=== PATIENT | male | born 1965 | race Caucasian/White ===

== ENCOUNTER → 2016-05-31 | Outpatient (CLI) | payer MEDICAID ==
[2016-05-31 07:28] LABS: Basophils # (A) 0.1 k/uL (0-0.2); Basophils % (A) 1 %; CH 30.7; CHCM 33.6; Eosinophils # (A) 0.2 k/uL (0-0.7); Eosinophils % (A) 2 %; HCT 51.9 % (39.0-53.0); HDW 2.38; HGB 16.6 gm/dL (13.0-17.5); Luc # (Auto) 0.28; Luc % (Auto) 3; Lymphocytes # (A) 2.4 k/uL (1.0-4.8); Lymphocytes % (A) 25 %; MCH 29.5 pg (25.0-35.0); MCHC 32.1 g/dL (31.0-37.0); MCV 91.9 fL (80.0-100.0); Mean Platelet Volume 9.2; Monocytes # (A) 0.6 k/uL (0-1.0); Monocytes % (A) 7 %; Neutrophils # (A) 5.9 k/uL (1.3-7.7); Neutrophils % (A) 62 %; RBC 5.64 m/uL (4.30-5.90); RDW 12.2 % (11.5-15.5); WBC 9.5 k/uL (3.8-10.6); WBC (Perox) 9.18
[2016-05-31 10:31] LABS: ALT 60 U/L (21-72); AST 26 U/L (17-59); Alkaline Phosphatase 76 U/L (38-126); Anion Gap 10 mmol/L; Blood Urea Nitrogen 14 mg/dL (9-20); Calcium 9.7 mg/dL (8.4-10.2); Carbon Dioxide 27 mmol/L (22-30); Chloride 103 mmol/L (98-107); Cholesterol 205 mg/dL (<200); Glucose 149 mg/dL (74-99); HDL Cholesterol 41 mg/dL (40-60); Non-African American GFR(MDRD) >60 (>60 ml/min/1.73 sqM); Potassium 4.7 mmol/L (3.5-5.1); Sodium 140 mmol/L (137-145); Total Bilirubin 0.5 mg/dL (0.2-1.3); Total Protein 7.3 g/dL (6.3-8.2); Triglycerides 260 mg/dL (<150)
== END | disposition home or self-care (01) ==
LOC: LABWHC1 06:45
PROVIDERS: ATTEND Family Medicine
DX: Z00.00 Encounter for general adult medical examination without abnormal findings (principal); Z13.21 Encounter for screening for nutritional disorder; Z12.5 Encounter for screening for malignant neoplasm of prostate
CPT/HCPCS: 80061; 80053; 84443; 85025; 82306; 36415; G0103

== ENCOUNTER → 2016-06-24 | Outpatient (CLI) | payer MEDICAID ==
[2016-06-24 16:33] LABS: Hemoglobin A1C 6.9 % (4.2-6.1)
== END | disposition home or self-care (01) ==
LOC: LABWHC1 16:01
PROVIDERS: ATTEND Family Medicine
DX: E11.9 Type 2 diabetes mellitus without complications (principal)
CPT/HCPCS: 36415; 83036

== ENCOUNTER → 2016-09-21 | Outpatient (CLI) | payer MEDICAID ==
[2016-09-21 11:14] LABS: Hemoglobin A1C 8.5 % (4.2-6.1)
== END | disposition home or self-care (01) ==
LOC: LABWHC1 09:25
PROVIDERS: ATTEND Family Medicine
DX: E11.9 Type 2 diabetes mellitus without complications (principal)
CPT/HCPCS: 36415; 83036

== ENCOUNTER → 2016-12-07 | Outpatient (CLI) | payer MEDICAID ==
--- NOTE | 2016-12-07 23:12 | MR ---
EXAMINATION TYPE: MR knee LT wo con DATE OF EXAM: 12/07/2016 COMPARISON: NONE HISTORY: Left Knee pain with swelling and clicking since 1982 TECHNIQUE: Multiplanar, multisequence imaging of the left knee is performed without IV contrast. FINDINGS: The anterior and posterior cruciate ligaments are intact. There is mild knee joint effusion. There is mild spurring on the patella. There is horizontal and vertical signal in the posterior horn of the m edial meniscus that extends to the superior and inferior surface. There is spurring at the femoral an d tibial condyles. There is mild signal within the lateral meniscus. There is a 2 x 1 cm somewhat john ear area of fluid signal in the posterior aspect of the intercondylar proximal tibia. This is consist ent with multiple degenerative cysts. The collateral ligaments appear intact. There is a 5 mm cyst in the proximal fibula. IMPRESSION: No evidence of ligamentous tear. Hypertrophic osteoarthritis with small joint effusion. Complex horiz ontal and vertical tear of posterior horn medial meniscus. Degenerative changes within the other meni sci without a complete tear. Degenerative cysts in the proximal tibia and fibula.
== END | disposition home or self-care (01) ==
LOC: RADMRIMAIN 17:54
PROVIDERS: ATTEND Orthopaedic Surgery
DX: S83.242A Other tear of medial meniscus, current injury, left knee, initial encounter (principal); M17.12 Unilateral primary osteoarthritis, left knee; M85.68 Other cyst of bone, other site

== ENCOUNTER → 2016-12-28 | Outpatient (CLI) | payer MEDICAID ==
[2016-12-28 08:14] LABS: EKG EKG PERFORMED
[2016-12-28 08:51] LABS: Basophils # (A) 0.1 k/uL (0-0.2); Basophils % (A) 1 %; CHCM 34.8; Eosinophils # (A) 0.3 k/uL (0-0.7); Eosinophils % (A) 3 %; HCT 49.3 % (39.0-53.0); HDW 2.45; HGB 16.7 gm/dL (13.0-17.5); Luc # (Auto) 0.38; Luc % (Auto) 4; Lymphocytes # (A) 3.1 k/uL (1.0-4.8); Lymphocytes % (A) 32 %; MCH 31.3 pg (25.0-35.0); MCHC 33.9 g/dL (31.0-37.0); MCV 92.3 fL (80.0-100.0); Monocytes # (A) 0.6 k/uL (0-1.0); Monocytes % (A) 7 %; Neutrophils # (A) 5.2 k/uL (1.3-7.7); Neutrophils % (A) 54 %; RBC 5.35 m/uL (4.30-5.90); RDW 13.4 % (11.5-15.5); WBC 9.6 k/uL (3.8-10.6); WBC (Perox) 9.38
[2016-12-28 09:02] LABS: Anion Gap 9 mmol/L; Carbon Dioxide 28 mmol/L (22-30); Chloride 103 mmol/L (98-107); Potassium 4.8 mmol/L (3.5-5.1); Sodium 140 mmol/L (137-145)
== END | disposition home or self-care (01) ==
LOC: LABPAT 08:05
PROVIDERS: ATTEND Orthopaedic Surgery
DX: Z01.812 Encounter for preprocedural laboratory examination (principal); M23.92 Unspecified internal derangement of left knee
CPT/HCPCS: 80051; 85025; 93005

== ENCOUNTER 2017-01-06 08:22 | Day surgery (SDC) | payer MEDICAID ==
[2016-12-29 11:38] VITALS: BMI 41.5
--- NOTE | 2017-01-05 16:39 | HP ---
HISTORY AND PHYSICAL DATE OF SURGERY: 01/06/2017 Marshal Cordon is a 51-year-old patient seen with progressive left knee pain. After treatment options were discussed, he elected to proceed with left knee arthroscopy. Consent was obtained. PAST MEDICAL HISTORY: 1. Hyperlipidemia. 2. Hypertension. 3. Insulin-dependent diabetes. 4. Asthma. PAST SURGICAL HISTORY: Knee arthroscopy. DAILY MEDICATIONS: 1. Adderall. 2. Atorvastatin. 3. Lisinopril. 4. Metformin. 5. Vitamins. ALLERGIES: WELLBUTRIN. SOCIAL HISTORY: Patient denies current tobacco use. PHYSICAL EVALUATION OF THE LEFT KNEE: Range of motion is 0 to 125 degrees. There is tenderness along the medial joint line with a positive medial Jose's. Ligaments are stable. Hip rotation is without pain. Distal neurovascular exam is intact. RADIOGRAPHS: Radiographs of the left knee revealed moderate osteoarthritis. An MRI of the left knee revealed a medial meniscal tear. IMPRESSION: Internal derangement, left knee, with medial meniscal tear. PLAN: Left knee arthroscopy with partial meniscectomy and debridement. MMODL / IJN: [id number] /
[~2017-01-06 08:22] MED LIST: DEXAMETHASONE SOD PHOSPHATE 10 MG/ML 1 ML VIAL IV ONE; HYDROmorphone 1 MG/ML 1 ML SYRINGE IVP PRN; LACTATED RINGERS 1,000 ML IV SCH; LIDOCAINE 1% 20 ML VIAL (10MG/ML) FOR IV START INTRADERMA PRN; ONDANSETRON 4 MG/2 ML VIAL IVP ONE; SCOPOLAMINE 1.5MG/72HR PATCH TRANSDERM ONE; ceFAZolin 3 GM in SODIUM CHLORIDE 0.9% 100 ML IVPB ONE
[2017-01-06 09:08] LABS: Glucose,Whole Blood 129 mg/dL (75-99)
[2017-01-06] MEDS ORDERED: MIDAZOLAM 2 MG/2 ML VIAL ONE (09:26)
[2017-01-06] MEDS ORDERED: PROPOFOL 10 MG/ML 20 ML VIAL IV ONE (09:26)
[2017-01-06] MEDS ORDERED: LIDOCAINE 1% INJ 10MG/ML (20 ML MDV) ONE (09:26)
[2017-01-06] MEDS ORDERED: fentaNYL (PF) 50 MCG/ML 2 ML AMP ONE (09:26)
[2017-01-06] MEDS ORDERED: BUPIVACAINE (PF) 0.25% 30 ML VIAL SQ ONE (09:44)
[2017-01-06 10:24] VITALS: TEMP 97.2
--- NOTE | 2017-01-06 10:24 | P.OP ---
Date of Procedure: 01/06/17 Preoperative Diagnosis: Internal derangement left knee Postoperative Diagnosis: 1. Tear medial and lateral meniscus left knee 2. Grade 3 chondromalacia medial femoral condyle left knee 3. Grade 3/4 chondromalacia patellofemoral joint left knee 4. Reactive synovitis medial and suprapatellar compartments left knee Procedure(s) Performed: 1. Arthroscopic partial medial and lateral meniscectomy left knee 2. Arthroscopic chondroplasty medial femoral condyle left knee 3. Arthroscopic chondroplasty patella left knee 4. Arthroscopic partial synovectomy medial and suprapatellar compartments left knee Implants: None Anesthesia: STEPH, local Surgeon: Jonh Diaz Estimated Blood Loss (ml): 10 Pathology: none sent Condition: stable Disposition: PACU Indications for Procedure: 51-year-old patient seen with progressive left knee pain. After treatment options discussed, he elected to proceed with arthroscopy. Operative Findings: See description of procedure Description of Procedure: Patient was taken to the operative suite. Patient underwent a general anesthetic by the department of anesthesia. Patient was given preoperative antibiotics. The left lower extremity was placed in a well-padded arthroscopic leg malagon. The left leg was prepped and draped in the normal sterile orthopedic fashion. A lateral parapatellar and suprapatellar incision was made. Trochars were inserted. Arthroscopy was initiated. Suprapatellar pouch revealed diffuse thick reactive synovitis. The patellofemoral joint appeared to articulate congruently. There was grade 3 chondromalacia of the patella with osteochondral tears and areas of grade 3 and 4 chondromalacia of the femoral sulcus with no obvious tearing noted.. The scope was guided into the medial gutter. No loose bodies or plica identified. The scope was then guided into the medial compartment. A medial parapatellar incision was made. Trocar inserted followed by probe. There was a complex tear involving the posterior horn and midbody of the medial meniscus. There were grade 3 chondral malacia changes diffusely about the medial femoral condyle with osteochondral tears present. There was thick reactive synovitis noted anteriorly. There were no loose bodies. A partial medial meniscectomy was performed on a stable tissue. I performed a chondroplasty of the medial femoral condyle down to stable tissue. I performed a partial synovectomy. The residual meniscus was probed and found to be stable. The residual osteochondral surface of the medial femoral condyle was stable. Scope and probe were then guided into the intercondylar notch. Cruciates were identified, probed and found to be stable. The scope and probe were then guided into lateral compartment. There was superficial tearing of the midbody lateral meniscus. Grade 1, changes lateral compartment were noted with no osteochondral tears. No reactive synovitis or loose bodies. A partial lateral meniscectomy was performed on a stable tissue. The residual meniscus was stable. The scope was in guided back into the suprapatellar compartment. I introduced a motorized shaver into the super patellar compartment. I performed a chondroplasty patella down to stable tissue. I debrided out some piecemeal fragments of meniscus I encountered. I performed a partial synovectomy. Shaver removed. I took one more look around the entire knee, no residual debris. Instruments were now removed from the joint. The joint was infiltrated with .25% Marcaine. Steri-Strips were applied to the portal sites. Sterile dressings were applied. The patient was placed into a YIFAN hose. No tourniquet was utilized. The patient was awakened, transferred to a bed and taken to recovery stable satisfactory condition.
[2017-01-06] MEDS ORDERED: KETOROLAC 30 MG/ML 1 ML VIAL IVP ONE (10:28)
[2017-01-06 11:18] VITALS: RESP 16
[2017-01-06] MEDS ORDERED: HYDROcodone/APAP 5-325MG 1 EACH TAB PO ONE (11:20)
[2017-01-06 11:28] VITALS: BP 130/78; PULSE 73
[2017-01-06 11:54] LABS: Glucose,Whole Blood 184 mg/dL (75-99)
== END 2017-01-06 11:49 | disposition home or self-care (01) ==
LOC: OR 08:22
PROVIDERS: ATTEND Orthopaedic Surgery
DX: S83.242A Other tear of medial meniscus, current injury, left knee, initial encounter (principal); S83.282A Other tear of lateral meniscus, current injury, left knee, initial encounter; X58.XXXA Exposure to other specified factors, initial encounter; M22.42 Chondromalacia patellae, left knee; M65.862 Other synovitis and tenosynovitis, left lower leg; E78.5 Hyperlipidemia, unspecified; Z87.891 Personal history of nicotine dependence; I10 Essential (primary) hypertension; E11.9 Type 2 diabetes mellitus without complications; Z79.4 Long term (current) use of insulin; J45.909 Unspecified asthma, uncomplicated; F32.9 Major depressive disorder, single episode, unspecified; Z79.84 Long term (current) use of oral hypoglycemic drugs; Z79.899 Other long term (current) drug therapy; Z79.891 Long term (current) use of opiate analgesic; Z88.8 Allergy status to other drugs, medicaments and biological substances
CPT/HCPCS: 29880; J2250; J1100; J0690; J2405; J2001; J3010; J1885; J2704

== ENCOUNTER → 2017-07-23 | Outpatient (CLI) | payer MEDICAID | LOC: LABPAT 10:25 | PROVIDERS: ATTEND Orthopaedic Surgery | DX: Z01.812 Encounter for preprocedural laboratory examination (principal) | CPT/HCPCS: 87070 ==

== ENCOUNTER → 2017-08-17 | Outpatient (CLI) | payer MEDICAID ==
[~2017-08-17] MED LIST changes: -DEXAMETHASONE SOD PHOSPHATE 10 MG/ML 1 ML VIAL IV ONE; -HYDROmorphone 1 MG/ML 1 ML SYRINGE IVP PRN; -LACTATED RINGERS 1,000 ML IV SCH; -LIDOCAINE 1% 20 ML VIAL (10MG/ML) FOR IV START INTRADERMA PRN; -ONDANSETRON 4 MG/2 ML VIAL IVP ONE; +REGADENOSON 0.4 MG/5 ML SYRINGE IV ONE; -SCOPOLAMINE 1.5MG/72HR PATCH TRANSDERM ONE; -ceFAZolin 3 GM in SODIUM CHLORIDE 0.9% 100 ML IVPB ONE
--- NOTE | 2017-08-17 10:55 | NM ---
EXAMINATION TYPE: NM stress lexiscan cardiolite DATE OF EXAM: 08/17/2017 COMPARISON: NONE HISTORY: Abnormal EKG, hypertension, diabetes, hyperlipidemia, family history of coronary artery dise ase, prior tobacco abuse and asthma. TECHNIQUE: After the intravenous administration of 9.92 mCi Tc 99m Sestamibi - Cardiolite resting SP ECT images acquired 45 minutes post injection. The patient received 0.4mg Lexiscan, 26.3 mCi Tc 99m Sestamibi - Stress images obtained [address] injection FINDINGS: Review of stress and rest SPECT images demonstrates no reversible perfusion abnormality. There is an approximately 3 segment fixed defect of the inferior slightly lateral ventricular wall within the mid and apical segments. Gated analysis shows normal wall motion with an estimated left ventricular eje ction fraction of 61 % at stress. TID is calculated at 1.11, within normal limits. IMPRESSION: 1. No scintigraphic evidence for reversible ischemia. 2. Small fixed defect of the inferior slightly lateral wall with corresponding hypokinesis relating t o prior infarct. 3. Estimated left ventricular ejection fraction of 61%.
--- NOTE | 2017-08-17 11:27 | EST ---
EXERCISE STRESS AGE: 51 SEX: M HT: 67" WT: 250 PROTOCOL: Lexiscan Cardiolite Stress Test HEART RATE REST: 71 BLOOD PRESSURE REST: 125/67 MAXIMUM HEART RATE ACHIEVED: 93 MAXIMUM BLOOD PRESSURE: 125/67 INDICATIONS: Abnormal EKG CLINICAL INFORMATION: Baseline EKG shows sinus rhythm with poor R-wave progression. Patient was given intravenous Lexiscan as per protocol. Did not have chest pain or diagnostic ST-segment depression. CONCLUSION: 1. Negative stress test by EKG criteria. 2. Cardiolite portion of the stress test will be reported separately. MMODL / IJN: [id number] /
== END | disposition home or self-care (01) ==
LOC: RADNMMAIN 07:55
PROVIDERS: ATTEND Family Medicine
DX: R94.31 Abnormal electrocardiogram [ECG] [EKG] (principal)
CPT/HCPCS: 93017; 78452; A9500; J2785

== ENCOUNTER 2017-08-22 05:46 | Inpatient (IN) | payer MEDICAID ==
[2017-08-10 13:19] VITALS: BMI 39.1
--- NOTE | 2017-08-21 12:25 | HP ---
HISTORY AND PHYSICAL REASON FOR ADMISSION: Surgery scheduled for 08/22/2017. Marshal Cordon is a 51-year-old patient seen with progressive left knee pain. We discussed treatment options. He elected to proceed with left total knee arthroplasty. Consent regarding the procedure was obtained. Medical clearance was provided by Dr. Rowe. PAST MEDICAL HISTORY: Hyperlipidemia, hypertension, tox-rselejw-imneldvoq diabetes. PAST SURGICAL HISTORY: Knee arthroscopy. DAILY MEDICATIONS: Atorvastatin, lisinopril, metformin, ibuprofen, Adderall. ALLERGIES: WELLBUTRIN. SOCIAL HISTORY: Patient denies tobacco use. PHYSICAL EXAMINATION: Evaluation of the left knee is range of motion is 0-120 degrees. There is a mild effusion present. Tenderness medial joint line. Crepitus along the medial patellofemoral compartments. Range of motion. Ligaments stable. Hip rotation without pain. Distal neurovascular exam is intact. RADIOGRAPHS: Left knee radiographs revealed moderate medial and moderate to severe patellofemoral compartment osteoarthritis. IMPRESSION: 1. Left knee osteoarthritis. 2. Hypertension. 3. Hyperlipidemia. 4. Iol-agqbncu-trjzsqpnv diabetes. PLAN: Left total knee arthroplasty. Surgery scheduled for 08/22/2017. MMODL / IJN: [id number] /
[~2017-08-22 05:46] MED LIST changes: +ACETAMINOPHEN TAB 500 MG TAB PO ONE; +MELOXICAM 7.5 MG TAB PO ONE; -REGADENOSON 0.4 MG/5 ML SYRINGE IV ONE; +TRANEXAMIC ACID 1,000 MG in SODIUM CHLORIDE 0.9% 50 ML IVPB ONE; +ceFAZolin IN SWFI 2 GM/20 ML SYRINGE IVP ONE
[2017-08-22] MEDS ORDERED: DEXAMETHASONE SOD PHOSPHATE 10 MG/ML 1 ML VIAL IV ONE (05:50)
[2017-08-22] MEDS ORDERED: MIDAZOLAM 2 MG/2 ML VIAL IV PRN (05:50)
[2017-08-22] MEDS ORDERED: ONDANSETRON ODT 4 MG TAB PO ONE (05:50)
[2017-08-22] MEDS ORDERED: LACTATED RINGERS 1,000 ML IV SCH (05:50)
[2017-08-22] MEDS ORDERED: MORPHINE SULFATE 4 MG/0.8 ML SYRINGE (INJ) IV PRN (05:50)
[2017-08-22] MEDS ORDERED: ONDANSETRON 4 MG/2 ML VIAL ONE (06:19)
[2017-08-22 06:23] LABS: Glucose,Whole Blood 245 mg/dL (75-99)
[2017-08-22] MEDS ORDERED: LIDOCAINE 1% 20 ML VIAL (10MG/ML) FOR IV START SQ ONE (06:25)
[2017-08-22] MEDS ORDERED: ONDANSETRON 4 MG/2 ML VIAL IVP ONE (06:25)
[2017-08-22] MEDS ORDERED: ROPIVACAINE 246.25 MG, EPINEPHrine 0.5 MG, KETOROLAC 30 MG, cloNIDine HCL/PF 80 MCG, WA... MISCELLANE ONE ×5 (07:22)
[2017-08-22] MEDS ORDERED: TRANEXAMIC ACID 1,000 MG/10 ML VIAL ONE (07:25)
[2017-08-22] MEDS ORDERED: SODIUM CHLORIDE 0.9% 100 ML BAG ONE (07:25)
[2017-08-22] MEDS ORDERED: MIDAZOLAM 2 MG/2 ML VIAL ONE (07:25)
[2017-08-22] MEDS ORDERED: fentaNYL (PF) 50 MCG/ML 2 ML AMP ONE (07:25)
[2017-08-22] MEDS ORDERED: PROPOFOL 10 MG/ML 20 ML VIAL IV ONE (07:25)
[2017-08-22] MEDS ORDERED: diphenhydrAMINE 50 MG/ML 1 ML VIAL ONE (07:25)
[2017-08-22] MEDS ORDERED: GLYCOPYRROLATE 0.2 MG/ML 2 ML VIAL ONE (07:25)
[2017-08-22] MEDS ORDERED: ceFAZolin 3,000 MG in SODIUM CHLORIDE 0.9% IRRIGATIO 3,000 ML IRRIGATION ONE (07:30)
[2017-08-22] MEDS ORDERED: ROPIVACAINE 1,100 MG, SODIUM CHLORIDE 0.9% 330 ML MISCELLANE PRN ×2 (09:34)
--- NOTE | 2017-08-22 09:34 | P.ONQ ---
Anesthesiology Proc Note - PNB - Peripheral Nerve Block Performed Left Adductor Canal Infusion Time Out Performed: Yes Procedure Start Time: 07:01 Procedure Stop Time: 07:14 Indication: Acute Post-Operative Pain, Requested by physician Sedation Type: Sedate with meaningful contact maintained Preparation: Sterile Dressing Position: Supine Catheter: Indwelling Needle Types: On-Q Needle Size: 150mm (6") Needle Gauge: 20 Technique: Ultrasound Injectate: 0.5% Ropivacaine (see comment for volume) (30 mls) Blood Aspirated: No Pain Paresthesia on Injection Noted: No Resistance on Injection: Normal Events: Uneventful and Well Tolerated
[2017-08-22] MEDS ORDERED: MORPHINE SULFATE 4 MG/0.8 ML SYRINGE (INJ) IVP PRN ×3 (09:47)
[2017-08-22] MEDS ORDERED: NALOXONE 0.4 MG/ML 1 ML VIAL IV PRN (09:47)
[2017-08-22] MEDS ORDERED: hydrOXYzine PAMOATE 25 MG CAP PO PRN (09:47)
[2017-08-22] MEDS ORDERED: ONDANSETRON 4 MG/2 ML VIAL IVP PRN (09:47)
[2017-08-22] MEDS ORDERED: HYDROcodone/APAP 7.5-325MG 1 EACH TAB PO PRN (09:47)
[2017-08-22] MEDS ORDERED: TEMAZEPAM 15 MG CAP PO PRN (09:47)
--- NOTE | 2017-08-22 09:47 | P.OP ---
Date of Procedure: 08/22/17 Preoperative Diagnosis: Left knee osteoarthritis Postoperative Diagnosis: Left knee osteoarthritis Procedure(s) Performed: Left total knee arthroplasty Implants: 1. Bradley persona size 10 left cruciate-retaining standard cemented femur 2. Bradley persona size G left cemented tibial tray 3. Bradley persona 12 mm medial congruent left polyethylene tibial insert 4. Bradley persona 38 mm all polyethylene cemented patella Anesthesia: regional (Adductor canal block), local, spinal Surgeon: Jonh Diaz Estimated Blood Loss (ml): 75 Pathology: other (Bone) Condition: stable Disposition: PACU Indications for Procedure: 51-year-old patient seen with symptomatic left knee osteoarthritis. After having options regarding treatment discussed, he elected to proceed with total knee arthroplasty. Operative Findings: See description of procedure Description of Procedure: Patient was taken to the operative suite after having an adductor canal catheter placed by the department of anesthesia. Patient underwent a spinal anesthetic by the department of anesthesia. Patient was given preoperative IV intake antibiotics and TXA. A well-padded tourniquet was placed about the left lower extremity. The lower extremity was then prepped and draped in the normal sterile orthopedic fashion. The extremity was elevated, a tourniquet was insufflated to 300. A standard anterior incision was made sharply through skin. Dissection was taken down through the subcutaneous soft tissues down to the extensor mechanism. A medial arthrotomy was performed, patella was everted and knee was flexed. There was advanced osteoarthritis noted. A proximal tibial cutting guide was positioned. Proximal tibial cut was made. A distal intramedullary femoral cutting guide was positioned, distal femoral cut made. We placed the appropriate sizing guide and selected the appropriate size. A distal 4-in-1 femoral cutting block was positioned, distal femoral cuts were made. We now placed a trial femoral component into position, along with an appropriate size tibial tray and insert. We now took the knee through range of motion and had full extension good flexion and good overall soft tissue balance noted. The patella was everted and a flush cut made with patellar quad tendon. We templated the patella, appropriate drill holes were made. An appropriate trial patella was positioned, knee was taken through full range of motion with the patella tracking very nicely. The trial patella was removed. Drill holes were made through the femoral component. All trial components were removed after marking off the appropriate rotation of the tibia. Retractors were now positioned along the proximal tibia. An appropriate keel punch was made with the appropriate size tibial guide. At this point appropriate size implants were chosen and opened. The joint was irrigated copiously with pulse lavage mechanical irrigation. The deep soft tissues were infiltrated with local analgesic. We mixed antibiotic methylmethacrylate. Once the methyl methacrylate was ready, the tibial component was cemented into place removing any excess methylmethacrylate. The femoral component was cemented into place removing the removing any excess methylmethacrylate. We then inserted the appropriate size polyethylene tibial insert. We made sure that it was locked into position. We took the knee into full extension, and then back in a flexion making sure we had removed any excess methylmethacrylate. The patellar component was then cemented down and secured with clamp. Excess methylmethacrylate removed. We kept the knee in full extension, patellar clamp in position until methylmethacrylate had hardened. Once it had hardened the patellar clamp was removed. The knee was taken through full range of motion. The patella tracked nicely. There was good soft tissue balancing. The tourniquet was now released. Additional hemostasis was achieved via electrocautery. The wound was irrigated with pulse lavage mechanical irrigation. The superficial soft tissues were infiltrated with local analgesic. The extensor mechanism was repaired with Vicryl. We checked the repair with range of motion and it was stable. The subcutaneous soft tissues were repaired with Vicryl in layers. The skin was approximated with pernio/ Dermabond. Sterile dressings were applied followed by loose web roll and Gregory bandage. The patient was transferred to a bed, and taken to recovery in stable and satisfactory condition.
--- NOTE | 2017-08-22 10:03 | XR ---
EXAMINATION TYPE: XR knee limited LT DATE OF EXAM: 08/22/2017 CLINICAL HISTORY: Left knee pain and arthritis status post total knee replacement. TECHNIQUE: Portable AP and crosstable lateral views of the left knee are obtained immediately postop eratively. COMPARISON: None FINDINGS: Metallic hardware from total left knee arthroplasty is seen and appears satisfactory in al ignment and position. There is evidence of recent surgery with diffuse subcutaneous gas and soft tis tj swelling noted. IMPRESSION: METALLIC HARDWARE FROM TOTAL LEFT KNEE ARTHROPLASTY IS SATISFACTORY IN ALIGNMENT.
[2017-08-22 10:26] LABS: Glucose,Whole Blood 319 mg/dL (75-99)
[2017-08-22] MEDS ORDERED: INSULIN ASPART 100 UNIT/ML 1 ML 10 ML VIAL SQ ONE (10:27)
--- NOTE | 2017-08-22 14:20 | P.CONS ---
History of Present Illness - Reason for Consult Consult date: 08/22/17 Medical management Requesting physician: Jonh Diaz - Chief Complaint Post left total knee arthroplasty - History of Present Illness This is a 51-year-old male one of Dr. Rowe with a previous medical history significant for hypertension and hypertensive cardiovascular disease, diabetes mellitus type 2, asthma, obesity with obstructive sleep apnea currently on CPAP, ADD, narcolepsy, patient underwent left total knee arthroplasty that was done successfully by Dr. Diaz , and patient did have spinal anesthesia, with pain pump. Patient was seen postoperatively for medical management. Patient stated that he had several knee surgery on the left side almost 9 of them initially after admitted for injury initial surgery was by Dr. Harrington this was followed by [address] last December and now a total left knee arthroplasty. Review of Systems Constitutional: Reports weight gain, Denies chills, Denies chronic headaches, Denies lethargy, Denies weight loss Eyes: denies blurred vision, denies bulging eye, denies decreased vision Ears: deny: decreased hearing Ears, nose, mouth and throat: Denies dysphagia, Denies neck lump, Denies sore throat Cardiovascular: Reports high blood pressure, Denies chest pain, Denies decreased exercise tolerance, Denies dyspnea on exertion, Denies rapid heart beat, Denies shortness of breath, Denies syncope Respiratory: Reports sleep apnea, Reports snoring, Denies congestion, Denies cough, Denies cough with sputum, Denies home oxygen, Denies wheezing Gastrointestinal: Denies abdominal pain, Denies bloating, Denies heartburn, Denies melena, Denies nausea, Denies vomiting Genitourinary: Denies dysuria, Denies nocturia, Denies polyuria Musculoskeletal: Denies myalgias Musculoskeletal: left: knee pain, knee stiffness, knee swelling, absent: ankle pain, ankle stiffness, ankle swelling, elbow pain, elbow stiffness, elbow swelling, foot pain, foot stiffness, foot swelling, hand pain, hand stiffness, hand swelling, hip pain, hip stiffness, hip swelling, shoulder stiffness, shoulder swelling, wrist pain, wrist stiffness, wrist swelling Integumentary: Denies pruritus, Denies rash Neurological: Denies numbness, Denies weakness Psychiatric: Denies anxiety, Denies depression Endocrine: Denies fatigue, Denies weight change Past Medical History Past Medical History: Asthma, Diabetes Mellitus, Hyperlipidemia, Hypertension, Osteoarthritis (OA), Sleep Apnea/CPAP/BIPAP Additional Past Medical History / Comment(s): ADD, Daytime somnolence, urinary frequency, bilateral shoulder pain History of Any Multi-Drug Resistant Organisms: None Reported Past Surgical History: Orthopedic Surgery Additional Past Surgical History / Comment(s): several left knee surgeries Past Anesthesia/Blood Transfusion Reactions: No Reported Reaction Past Psychological History: ADD/ADHD Smoking Status: Former smoker (Patient used to smoke about pack every day smoked for many years and quit about year ago.) Past Alcohol Use History: Rare Additional Past Alcohol Use History / Comment(s): smoked on and off 20 years 1 ppd quit 2016 Past Drug Use History: None Reported - Past Family History Mother Family Medical History: Cancer (Mother at age of 75 from breast cancer.) Father Family Medical History: Coronary Artery Disease (CAD) (Father at age 77 had history of CAD post-stent placement.), Deep Vein Thrombosis (DVT) Brother(s) Family Medical History: Sleep Apnea/CPAP/BIPAP (Patient has one brother with sleep apnea.) Sister(s) Family Medical History: No Reported History (Patient has one sister no major medical problems.) Daughter(s) Family Medical History: No Reported History (Patient has 3 daughters no major medical problems.) Son(s) Family Medical History: No Reported History (Patient has one son no major medical problems.) Medications and Allergies Home Medications Medication Instructions Recorded Confirmed Type Lisinopril [Zestril] 5 mg PO DAILY 10/07/16 08/22/17 History metFORMIN HCL ER [Glucophage Xr] 500 mg PO BID 10/07/16 08/22/17 History Albuterol Nebulized [Ventolin 2.5 mg INHALATION RT-QID PRN 12/29/16 08/22/17 History Nebulized] Atorvastatin [Lipitor] 20 mg PO HS 12/29/16 08/22/17 History Beclomethasone Dipropionate [Qvar 1 puff INHALATION RT-BID 12/29/16 08/22/17 History 80 mcg] Cholecalciferol [Vitamin D3] 2,000 unit PO DAILY 12/29/16 08/22/17 History Dextroamphetamine/Amphetamine 20 mg PO TID 12/29/16 08/22/17 History [Adderall] Fluticasone Nasal [employer] [Flonase 2 spr EA NOSTRIL DAILY 12/29/16 08/22/17 History Nasal [employer]] Aspirin [Adult Low Dose Aspirin EC] 81 mg PO DAILY 08/10/17 08/22/17 History Allergies Allergy/AdvReac Type Severity Reaction Status Date / Time bupropion [From Wellbutrin] Allergy Rash/Hives Verified 08/22/17 10:05 Physical Exam Vitals: Vital Signs Temp Pulse Pulse Resp BP Pulse Ox 08/22/17 12:45 64 16 124/70 96 08/22/17 12:30 60 16 123/71 94 L 08/22/17 12:15 61 16 129/72 96 08/22/17 12:00 61 16 118/87 95 08/22/17 11:45 69 16 129/72 96 08/22/17 11:30 64 16 121/69 94 L 08/22/17 11:15 61 16 131/78 91 L 08/22/17 11:00 71 16 153/85 95 08/22/17 10:45 98 F 70 16 120/67 93 L 08/22/17 10:30 66 16 108/63 94 L 08/22/17 10:15 68 16 106/61 92 L 08/22/17 10:00 62 16 105/66 96 08/22/17 09:43 97 F L 68 13 123/68 97 08/22/17 07:25 71 16 141/89 96 08/22/17 06:10 98.6 F 69 16 146/77 96 Intake and Output 08/21/17 08/22/17 08/22/17 22:59 06:59 14:59 Intake Total 776 Output Total 75 Balance 701 Intake: IV 776 Output: Estimated Blood Loss 75 Other: Weight 113.398 kg - Constitutional General appearance: no acute distress, obese - EENT Eyes: anicteric sclerae, EOMI, PERRLA, no ptosis, no scleral icterus, normal appearance ENT: hearing grossly normal, NA/AT, normal oropharynx, no thrush Ears: bilateral: normal - Neck Neck: no lymphadenopathy, normal ROM, no rigidity, no stridor, no thyromegaly Carotids: bilateral: upstroke normal Thyroid: bilateral: normal size - Respiratory Respiratory: bilateral: diminished, negative: dullness, rales, rhonchi, wheezing , prolonged expiration, prolonged inspiration - Cardiovascular Rhythm: regular Heart sounds: normal: S1, S2 Abnormal Heart Sounds: no systolic murmur, no S3 Gallop, no S4 Gallop - Gastrointestinal General gastrointestinal: normal bowel sounds, soft, no splenomegaly, no tenderness, no umbilical hernia - Integumentary Integumentary: normal, normal turgor - Neurologic Neurologic: CNII-XII intact - Musculoskeletal Musculoskeletal: strength equal bilaterally - Psychiatric Psychiatric: A&O x's 3, appropriate affect, intact judgment & insight Results Labs: Abnormal Lab Results - Last 24 Hours (Table) 08/22/17 08/22/17 Range/Units 06:16 10:23 POC Glucose (mg/dL) 245 H 319 H (75-99) mg/dL Assessment and Plan Assessment: Assessment and plan: 1. Post operative day #0 status post left total knee arthroplasty. Patient was instructed about the use of incentive spirometer to reduce the incidence of atelectasis and hospital-acquired pneumonia, continue with current pain management as outlined by orthopedic surgery, physical therapy evaluation tomorrow morning, patient was placed on Lovenox 30 mg subcutaneously every 12 hours for DVT prophylaxis, continue to monitor the patient very closely. 2. Hypertension and hypertensive cardiovascular disease. Continue lisinopril 5 mg orally once every day. 3. Hyperlipidemia. Continue patient on Lipitor 20 mg orally once every day. 4. Obesity with obstructive sleep apnea. Continue CPAP. 5. Osteoarthritis. Continue current pain management. 6. Diabetes mellitus type 2. Continue patient on metformin 500 mg orally twice every day, BGM before each meal and at bedtime, sliding scale insulin. 7. History of asthma. Continue patient on albuterol nebulized treatment as well as Qvar 80 g nebulization twice every day. 8. DVT prophylaxis. Continue patient on Lovenox. 9. GI prophylaxis. Continue Pepcid 20 mg orally once every day. 10. Thank you Dr. Diaz for allowing me to participate in the care of your patient, we will follow the patient with you.
[2017-08-22] MEDS ORDERED: MORPHINE SULFATE 4 MG/ML SYRINGE IVP PRN ×3 (14:57→14:58)
[2017-08-22] MEDS: traMADol 50 MG TAB PO SCH ×3 (14:59→21:48)
[2017-08-22] MEDS: ceFAZolin IN SWFI 2 GM/20 ML SYRINGE IVP SCH ×2 (14:59→23:36)
[2017-08-22 16:43] LABS: Glucose,Whole Blood 360 mg/dL (75-99)
[2017-08-22] MEDS: HYDROcodone/APAP 7.5-325MG 1 EACH TAB PO PRN (16:59)
[2017-08-22] MEDS: LACTATED RINGERS 1,000 ML IV SCH ×2 (17:02→20:38)
[2017-08-22] MEDS ORDERED: INSULIN ASPART 100 UNIT/ML 1 ML 10 ML VIAL SQ SCH (17:30)
[2017-08-22] MEDS: metFORMIN 500 MG TAB PO SCH (17:56)
[2017-08-22] MEDS: ENOXAPARIN 30 MG/0.3 ML SYRINGE SQ SCH (20:32)
[2017-08-22 21:00] LABS: Glucose,Whole Blood 296 mg/dL (75-99)
[2017-08-22] MEDS ORDERED: ATORVASTATIN 20 MG TAB PO SCH (21:00)
[2017-08-22] MEDS ORDERED: SENNOSIDES-DOCUSATE SODIUM 1 EACH TAB PO SCH (21:00)
[2017-08-22] MEDS: INSULIN ASPART 100 UNIT/ML 1 ML 10 ML VIAL SQ SCH (21:43)
[2017-08-22] MEDS: ALBUTEROL NEBULIZED 2.5 MG/3 ML INHALATION PRN (21:51)
[2017-08-22] MEDS: BUDESONIDE 0.5 MG/2 ML NEBU INHALATION SCH (21:51)
[2017-08-23] MEDS: LACTATED RINGERS 1,000 ML IV SCH ×2 (04:49→09:07)
[2017-08-23] MEDS: HYDROcodone/APAP 7.5-325MG 1 EACH TAB PO PRN ×2 (04:51→10:45)
[2017-08-23 07:04] LABS: Glucose,Whole Blood 247 mg/dL (75-99)
[2017-08-23] MEDS: ENOXAPARIN 30 MG/0.3 ML SYRINGE SQ SCH (07:29)
[2017-08-23] MEDS: metFORMIN 500 MG TAB PO SCH (07:30)
[2017-08-23] MEDS: traMADol 50 MG TAB PO SCH ×2 (07:32→12:33)
[2017-08-23 07:35] LABS: Basophils % (A) 0 %; Eosinophils # (A) 0.1 k/uL (0-0.7); Eosinophils % (A) 1 %; HCT 39.9 % (39.0-53.0); HGB 13.3 gm/dL (13.0-17.5); Lymphocytes # (A) 3.1 k/uL (1.0-4.8); Lymphocytes % (A) 23 %; MCH 29.3 pg (25.0-35.0); MCHC 33.2 g/dL (31.0-37.0); MCV 88.2 fL (80.0-100.0); Mean Platelet Volume 10.1; Monocytes % (A) 8 %; Neutrophils # (A) 8.8 k/uL (1.3-7.7); Neutrophils % (A) 66 %; Platelet Count 148 k/uL (150-450); RBC 4.53 m/uL (4.30-5.90); RDW 12.7 % (11.5-15.5); WBC 13.5 k/uL (3.8-10.6)
[2017-08-23] MEDS: INSULIN ASPART 100 UNIT/ML 1 ML 10 ML VIAL SQ SCH ×2 (07:38→12:54)
[2017-08-23 07:42] VITALS: BP 121/77; RESP 16; TEMP 97.3
[2017-08-23] MEDS: ALBUTEROL NEBULIZED 2.5 MG/3 ML INHALATION PRN (08:29)
[2017-08-23] MEDS: BUDESONIDE 0.5 MG/2 ML NEBU INHALATION SCH (08:29)
[2017-08-23 08:45] VITALS: PULSE 70
[2017-08-23] MEDS ORDERED: FAMOTIDINE 20 MG TAB PO SCH (09:00)
[2017-08-23] MEDS ORDERED: CHOLECALCIFEROL 1,000 UNIT TAB PO SCH (09:00)
[2017-08-23] MEDS ORDERED: LISINOPRIL 5 MG TAB PO SCH (09:00)
[2017-08-23] MEDS ORDERED: FLUTICASONE 50MCG/SPRAY NASAL 16GM EA NOSTRIL SCH (09:00)
[2017-08-23] MEDS ORDERED: MELOXICAM 7.5 MG TAB PO SCH (09:00)
--- NOTE | 2017-08-23 11:17 | P.PN ---
Subjective Progress Note Date: 08/23/17 Principal diagnosis: Status post left total knee arthroplasty Patient is seen today resting in his hospital bed, he appears comfortable. He is done well with physical therapy. His pain is well-controlled. He denies any headaches, lightheadedness, chest pain or shortness of breath. Objective - Vital Signs Vital signs: Vital Signs Temp 97.3 F L 08/23/17 07:41 Pulse 70 08/23/17 08:45 Resp 16 08/23/17 07:42 BP 121/77 08/23/17 07:41 Pulse Ox 97 08/23/17 08:33 Intake & Output 08/22/17 08/23/17 08/23/17 18:59 06:59 18:59 Intake Total 1076 1600 Output Total 75 600 Balance 1001 1000 Weight 113.398 kg Intake: IV 776 Intake, IV Titration 300 1600 Amount Lactated Ringers 1,000 ml 300 1600 @ 100 mls/hr IV .Q10H SHANDA Rx#:[id number] Output: Urine 600 Estimated Blood Loss 75 Other: Voiding Method Toilet Urinal # Voids 1 3 1 - Exam Left lower extremity: Incision is clean, dry, and intact. The prineo tape is in good condition. There is minimal soft tissue swelling and ecchymosis surrounding the medial and lateral aspects of the incision. Calf is soft, no tenderness with palpation. Plantar flexion, dorsiflexion, EHL, FHL are intact. Sensory exam to light touch throughout the extremity is intact, dorsal pedis pulses 2+. - Labs CBC & Chem 7: 08/23/17 06:52 Labs: Abnormal Lab Results - Last 24 Hours (Table) 08/22/17 08/22/17 08/23/17 Range/Units 16:41 20:44 06:52 WBC 13.5 H (3.8-10.6) k/uL Plt Count 148 L (150-450) k/uL Neutrophils # 8.8 H (1.3-7.7) k/uL POC Glucose (mg/dL) 360 H 296 H (75-99) mg/dL 08/23/17 Range/Units 07:01 WBC (3.8-10.6) k/uL Plt Count (150-450) k/uL Neutrophils # (1.3-7.7) k/uL POC Glucose (mg/dL) 247 H (75-99) mg/dL Assessment and Plan Plan: Assessment: 1. Postop day 1 status post left total knee arthroplasty Plan: 1. Pain control, will utilize oral medication and discharged 2. GI and DVT prophylaxis, continue Lovenox during inpatient stay. Checking co -pays was hoped to use Xarelto 10 mg once a day at discharge 3. Wound care instructions were discussed 4. Icing and elevating techniques were discussed 5. Medical recommendations 6. Discharge planning: Patient likely be discharged home today Time with Patient: Less than 30
--- NOTE | 2017-08-23 11:19 | P.DS ---
Providers Date of admission: 08/22/17 05:46 Expected date of discharge: 08/23/17 Attending physician: Jonh Diaz Consults: 08/22/17 09:47 Consult Physician Routine Consulting Provider: Dominic Falcon Consult Reason/Comments: Medical management Do you want consulting provider notified?: Already Contacted Primary care physician: Jagdish Cortez minerva [facility] Course: Date of admission: 08/22/2018 Date of discharge: 08/23/2017 Admission diagnosis: Status post left total knee arthroplasty Discharge diagnosis: Same Attending physician: Dr. Diaz Surgical procedures: Left total knee arthroplasty Brief history: Patient is a 51-year-old male with a history of progressive primary left knee osteoarthritis. At this point patient has failed conservative treatment measures and has opted to proceed with a elective left total knee arthroplasty. Hospital course: Details of patient's surgery can be found in operative report. Patient tolerated the procedure well and was subsequently transported to orthopedic floor. Patient's orthopeidc and medical care was provided daily. Patient had daily laboratory tests performed for evaluation of overall blood counts. Patient had daily physical therapy to include strengthening range of motion as well as education with walker ambulation. Patient had daily CPM usage as part of their physical therapy program. Patient was treated with Lovenox for their postoperative DVT prophylaxis during their inpatient stay. Patient was noted to have a relatively uneventful postoperative course. Patient reported satisfactory pain control with oral pain medications by postoperative day 0. Patient showed satisfactory progress with physical therapy. Patient moved steadily through the program and had no difficulty meeting the goals by postoperative day 1. Given patient's otherwise satisfactory course and having met physical therapy goals, plan is to discharge patient home on postoperative day 1. Discharge condition/disposition: Patient will be discharged home in stable condition. Discharge medications: Instructions are given on resumption of patient's normal daily medications per primary care recommendation, in addition patient will be prescribed . Discharge instructions: 1. Wound care and infection precautions, keep incision dry and covered while showering, no lotions, creams, moisturizers. No soaking, tubs, pools, hottubs. Do not scrub over the incision. 2. Weight-bear as tolerated with walker / cane until follow-up. 3. Ice and elevate when necessary. Do not exceed 20 minutes per hour with ice pack. 4. Utilize compression sleeve until seen at first follow up appointment. 5. Visiting nursing care. 6. Home physical therapy including home CPM. 7. Pain meds and anticoagulants per prescription. 8. Pain medication has potential to cause constipation. Increase oral fluid and fiber intake. Contact primary care provider if you have not had a bowel movement within 48 hours after discharge 9. No anti-inflammatory medication until discussed at first post operative visit, this including Motrin, Aleve, Mobic, Diclofenac. 10. Follow up in office at 2 weeks postop with Fabian Kennedy PA-C 11. Follow up with your primary care doctor 7-10 days after discharge. 12. Contact [facility] with any questions, . Procedures: Left total knee arthroplasty Patient Condition at Discharge: Good Plan - Discharge Summary Discharge Rx Participant: Yes New Discharge Prescriptions: New Rivaroxaban [Xarelto] 10 mg PO DAILY #12 tab No Action Lisinopril [Zestril] 5 mg PO DAILY metFORMIN HCL ER [Glucophage Xr] 500 mg PO BID Dextroamphetamine/Amphetamine [Adderall] 20 mg PO TID Cholecalciferol [Vitamin D3] 2,000 unit PO DAILY Atorvastatin [Lipitor] 20 mg PO HS Albuterol Nebulized [Ventolin Nebulized] 2.5 mg INHALATION RT-QID PRN PRN Reason: Dyspnea Fluticasone Nasal [place] [Flonase Nasal [place]] 2 spr EA NOSTRIL DAILY Beclomethasone Dipropionate [Qvar 80 mcg] 1 puff INHALATION RT-BID Aspirin [Adult Low Dose Aspirin EC] 81 mg PO DAILY Discharge Medication List Lisinopril [Zestril] 5 mg PO DAILY 10/07/16 [History] metFORMIN HCL ER [Glucophage Xr] 500 mg PO BID 10/07/16 [History] Albuterol Nebulized [Ventolin Nebulized] 2.5 mg INHALATION RT-QID PRN 12/29/16 [ History] Atorvastatin [Lipitor] 20 mg PO HS 12/29/16 [History] Beclomethasone Dipropionate [Qvar 80 mcg] 1 puff INHALATION RT-BID 12/29/16 [ History] Cholecalciferol [Vitamin D3] 2,000 unit PO DAILY 12/29/16 [History] Dextroamphetamine/Amphetamine [Adderall] 20 mg PO TID 12/29/16 [History] Fluticasone Nasal [place] [Flonase Nasal [place]] 2 spr EA NOSTRIL DAILY 12/29/16 [ History] Aspirin [Adult Low Dose Aspirin EC] 81 mg PO DAILY 08/10/17 [History] Rivaroxaban [Xarelto] 10 mg PO DAILY #12 tab 08/23/17 [Rx] Follow up Appointment(s)/Referral(s): [facility], [NON-STAFF] - Clayton Kennedy PAC [PHYSICIAN BOOTH OPERATOR] - 2 Weeks Patient Instructions/Handouts: *Surgery [facility] - On-Q Pain Pump Discharge Instructions, Knee Replacement (DC) Activity/Diet/Wound Care/Special Instructions: Orthopedic Discharge Instructions: 1. Wound care and infection precautions, keep incision dry and covered while showering, no lotions, creams, moisturizers. No soaking, pools, hot tubs. Do not scrub over incision. 2. Weight-bear as tolerated with walker / cane until follow-up. 3. Ice and elevate when necessary. Do not exceed 20 minutes per hour with ice pack. 4. Utilize compression sleeve until seen at first follow up appointment. 5. Visiting nursing care. 6. Home physical therapy including home CPM. 7. Pain meds and anticoagulants per prescription. 8. Pain medication has potential to cause constipation. Increase oral fluid and fiber intake. Contact primary care provider if you have not had a bowel movement within 48 hours after discharge. 9. No anti-inflammatory medication until discussed at first post operative visit, this including Motrin, Aleve, Mobic, Diclofenac. 10. Follow up in office at 2 weeks postop with Fabian Kennedy PA-C 11. Follow up with your primary care doctor 7-10 days after discharge. 12. Contact [facility] with any questions, . Discharge Disposition: HOME WITH HOME HEALTH SERVICES
[2017-08-23 11:46] LABS: Glucose,Whole Blood 240 mg/dL (75-99)
--- NOTE | 2017-08-23 20:22 | P.PN ---
Subjective Progress Note Date: 08/23/17 This is a 51-year-old male one of Dr. Rowe with a previous medical history significant for hypertension and hypertensive cardiovascular disease, diabetes mellitus type 2, asthma, obesity with obstructive sleep apnea currently on CPAP, ADD, narcolepsy, patient underwent left total knee arthroplasty that was done successfully by Dr. Diaz , and patient did have spinal anesthesia, with pain pump. Patient was seen postoperatively for medical management. Patient stated that he had several knee surgery on the left side almost 9 of them initially after admitted for injury initial surgery was by Dr. Blue this was followed by [address] Diaz last December and now a total left knee arthroplasty. 08/23: Patient is scheduled for discharge home today. He is on xarelto for DVT prophylaxis. Blood sugars are running in the 200s. Patient will resume his home regime once discharged. Objective - Vital Signs Vital signs: Vital Signs Temp 97.3 F L 08/23/17 07:41 Pulse 70 08/23/17 08:45 Resp 16 08/23/17 07:42 BP 121/77 08/23/17 07:41 Pulse Ox 97 08/23/17 08:33 Intake & Output 08/22/17 08/23/17 08/23/17 18:59 06:59 18:59 Intake Total 1076 1600 Output Total 75 600 Balance 1001 1000 Weight 113.398 kg Intake: IV 776 Intake, IV Titration 300 1600 Amount Lactated Ringers 1,000 ml 300 1600 @ 100 mls/hr IV .Q10H SHANDA Rx#:[id number] Output: Urine 600 Estimated Blood Loss 75 Other: Voiding Method Toilet Urinal # Voids 1 3 1 - Exam General appearance: no acute distress, obese - EENT Eyes: anicteric sclerae, EOMI, PERRLA, no ptosis, no scleral icterus, normal appearance ENT: hearing grossly normal, NA/AT, normal oropharynx, no thrush Ears: bilateral: normal - Neck Neck: no lymphadenopathy, normal ROM, no rigidity, no stridor, no thyromegaly Carotids: bilateral: upstroke normal Thyroid: bilateral: normal size - Respiratory Respiratory: bilateral: diminished, negative: dullness, rales, rhonchi, wheezing , prolonged expiration, prolonged inspiration - Cardiovascular Rhythm: regular Heart sounds: normal: S1, S2 Abnormal Heart Sounds: no systolic murmur, no S3 Gallop, no S4 Gallop - Gastrointestinal General gastrointestinal: normal bowel sounds, soft, no splenomegaly, no tenderness, no umbilical hernia - Integumentary Integumentary: normal, normal turgor - Neurologic Neurologic: CNII-XII intact - Musculoskeletal Musculoskeletal: strength equal bilaterally - Psychiatric Psychiatric: A&O x's 3, appropriate affect, intact judgment & insight - Labs CBC & Chem 7: 08/23/17 06:52 Labs: Abnormal Lab Results - Last 24 Hours (Table) 08/22/17 08/22/17 08/23/17 Range/Units 16:41 20:44 06:52 WBC 13.5 H (3.8-10.6) k/uL Plt Count 148 L (150-450) k/uL Neutrophils # 8.8 H (1.3-7.7) k/uL POC Glucose (mg/dL) 360 H 296 H (75-99) mg/dL 08/23/17 Range/Units 07:01 WBC (3.8-10.6) k/uL Plt Count (150-450) k/uL Neutrophils # (1.3-7.7) k/uL POC Glucose (mg/dL) 247 H (75-99) mg/dL Assessment and Plan Plan: 1. Status post left total knee arthroplasty. Patient was instructed about the use of incentive spirometer to reduce the incidence of atelectasis and hospital- acquired pneumonia, continue with current pain management as outlined by orthopedic surgery, physical therapy evaluation tomorrow morning, patient was placed on Lovenox 30 mg subcutaneously every 12 hours for DVT prophylaxis, continue to monitor the patient very closely. 2. Hypertension and hypertensive cardiovascular disease. Continue lisinopril 5 mg orally once every day. 3. Hyperlipidemia. Continue patient on Lipitor 20 mg orally once every day. 4. Obesity with obstructive sleep apnea. Continue CPAP. 5. Osteoarthritis. Continue current pain management. 6. Diabetes mellitus type 2. Continue patient on metformin 500 mg orally twice every day, BGM before each meal and at bedtime, sliding scale insulin. 7. History of asthma. Continue patient on albuterol nebulized treatment as well as Qvar 80 g nebulization twice every day. 8. DVT prophylaxis. Continue patient on Lovenox. 9. GI prophylaxis. Continue Pepcid 20 mg orally once every day. Discharge plan: Home with [facility] Impression and plan of care have been directed as dictated by the signing physician. Elizabeth Gresham nurse practitioner acting as scribe for signing physician.
== END 2017-08-23 14:45 | disposition home health service (06) | DRG 470 ==
LOC: 2ORMAIN 05:46 → 3SUR 09:35
PROVIDERS: ADMIT Orthopaedic Surgery; ATTEND Orthopaedic Surgery
PROC: 0SRD0J9 Replacement of Left Knee Joint with Synthetic Substitute, Cemented, Open Approach (ICD-10-PCS; principal; 2017-08-22 07:30)
DX: M17.12 Unilateral primary osteoarthritis, left knee (principal); I11.9 Hypertensive heart disease without heart failure; E11.9 Type 2 diabetes mellitus without complications; E66.9 Obesity, unspecified; Z68.39 Body mass index [BMI] 39.0-39.9, adult; E78.5 Hyperlipidemia, unspecified; F90.9 Attention-deficit hyperactivity disorder, unspecified type; G47.33 Obstructive sleep apnea (adult) (pediatric); G47.419 Narcolepsy without cataplexy; J45.909 Unspecified asthma, uncomplicated; Z79.82 Long term (current) use of aspirin; Z79.84 Long term (current) use of oral hypoglycemic drugs; Z79.899 Other long term (current) drug therapy; Z80.9 Family history of malignant neoplasm, unspecified; Z82.49 Family history of ischemic heart disease and other diseases of the circulatory system; Z87.891 Personal history of nicotine dependence; Z88.8 Allergy status to other drugs, medicaments and biological substances; Z79.51 Long term (current) use of inhaled steroids
CPT/HCPCS: 85025; 88300; 94640; 94760

== ENCOUNTER → 2017-08-29 | Outpatient (CLI) | payer MEDICAID ==
--- NOTE | 2017-08-29 13:01 | US ---
EXAMINATION TYPE: US venous doppler duplex LE LT DATE OF EXAM: 08/29/2017 12:39 PM COMPARISON: NONE CLINICAL HISTORY: M79.662 Pain left lower leg.Ecchymosis to left thigh and calf with pain anterior kn ee and patient is post left knee replacement one week ago. SIDE PERFORMED: left TECHNIQUE: The lower extremity deep venous system is examined utilizing real time linear array sonog delio with graded compression, doppler sonography and color-flow sonography. VESSELS IMAGED: Common Femoral Vein Deep Femoral Vein Greater Saphenous Vein * Femoral Vein Popliteal Vein Small Saphenous Vein * Limited exam as left proximal calf veins were not seen due to severe swelling/tissue edema Left Leg: Negative for DVT. Multiple fluid channels are noted on images #22 through 31 with largest fluid collection noted anterolateral knee = 4.2 x 3.8 x 0.5cm. Grayscale, color doppler, spectral doppler imaging performed of the deep veins of the left lower extr emity. There is normal flow, compressibility, vascular waveforms. Tech findings called to Lori at Dr Fountain' Office at exam's end.JJ IMPRESSION: No ultrasound evidence for acute DVT in the left lower extremity. Subcutaneous fluid is present most prominent below the knee anterolateral aspect.
== END | disposition home or self-care (01) ==
LOC: RADUSWWP 12:09
PROVIDERS: ATTEND Orthopaedic Surgery
DX: M79.622 Pain in left upper arm (principal); R22.42 Localized swelling, mass and lump, left lower limb; Z88.8 Allergy status to other drugs, medicaments and biological substances; Z96.653 Presence of artificial knee joint, bilateral

== ENCOUNTER 2017-10-31 08:45 | Day surgery (SDC) | payer MEDICAID ==
[2017-10-27 15:38] VITALS: BMI 38.0
--- NOTE | 2017-10-30 10:47 | HP ---
HISTORY AND PHYSICAL REASON FOR ADMISSION: Surgery scheduled for 10/31/2017 HISTORY OF PRESENT ILLNESS: Marshal Cordon is a 51-year-old patient who had previously undergone left total knee arthroplasty. He was noted to have persistent adhesions. I recommended manipulation under anesthesia with steroid injection. I did review the procedure, risks, complications, recovery. Patient was agreeable. Consent was obtained. PAST MEDICAL HISTORY: Hypertension, hyperlipidemia, ibf-erhhzmc-lavcjedop diabetes, asthma. PAST SURGICAL HISTORY: Left total knee arthroplasty, left knee arthroscopy. DAILY MEDICATIONS: Atorvastatin, lisinopril, metformin, ibuprofen. ALLERGIES: WELLBUTRIN. SOCIAL HISTORY: Patient denies current tobacco use. PHYSICAL EXAMINATION: Evaluation of the left knee: He has well-healed incision. Range of motion is -785. There may be a trace effusion present. Ligaments stable. Hip rotation without pain. Distal neurovascular exam intact. Homans and [place] negative. RADIOGRAPHS: Obtained of the left knee revealed a stable appearing total knee arthroplasty. IMPRESSION: 1. Left knee adhesions. 2. Left total knee arthroplasty. 3. Hypothyroidism. 4. Hypertension. 5. Hyperlipidemia. 6. Cdj-rbkkxfo-lpxhulicb diabetes mellitus. PLAN: Manipulation under anesthesia left knee with steroid injection. Surgery scheduled for 10/31/2017. MMODL / IJN: [id number] /
[~2017-10-31 08:45] MED LIST changes: -ACETAMINOPHEN TAB 500 MG TAB PO ONE; +LACTATED RINGERS 1,000 ML IV SCH; -MELOXICAM 7.5 MG TAB PO ONE; +MIDAZOLAM 2 MG/2 ML VIAL IV PRN; -TRANEXAMIC ACID 1,000 MG in SODIUM CHLORIDE 0.9% 50 ML IVPB ONE; -ceFAZolin IN SWFI 2 GM/20 ML SYRINGE IVP ONE; +fentaNYL (PF) 50 MCG/ML 2 ML AMP IV PRN
[2017-10-31 09:32] LABS: Glucose,Whole Blood 130 mg/dL (75-99)
[2017-10-31] MEDS ORDERED: fentaNYL (PF) 50 MCG/ML 2 ML AMP ONE (09:48)
[2017-10-31] MEDS ORDERED: MIDAZOLAM 2 MG/2 ML VIAL ONE (09:48)
[2017-10-31] MEDS ORDERED: PROPOFOL 10 MG/ML 20 ML VIAL IV ONE (09:48)
[2017-10-31] MEDS ORDERED: HYDROmorphone 1 MG/ML 1 ML SYRINGE IVP ONE ×4 (10:01→10:18)
--- NOTE | 2017-10-31 10:01 | P.OP ---
Date of Procedure: 10/31/17 Preoperative Diagnosis: Left knee adhesions Postoperative Diagnosis: Left knee adhesions Procedure(s) Performed: Patient under anesthesia left knee with steroid injection Anesthesia: MAC Surgeon: Jonh Diaz Estimated Blood Loss (ml): 0 Pathology: none sent Condition: stable Disposition: PACU Indications for Procedure: 51-year-old patient seen with persistent adhesions of the left knee after previously under having gone total knee arthroplasty. I discussed treatment options, he elected to proceed with knee position under anesthesia left knee with steroid injection. Operative Findings: see description of procedure Description of Procedure: Patient was taken to monitored anesthesia area. Patient received preoperative IV antibiotics. The patient underwent IV sedation by the department of anesthesia. Once sufficient esthesia was noted I performed a manipulation of the left knee achieving full extension and 130 of flexion. I then sterilely prepped and draped the superior lateral aspect of the left knee. I now injected solution of 1 mL Depo-Medrol and 3 mL quarter percent Marcaine. The knee was again taken through range of motion. I now applied a sterile Band- Aid. The patient was awakened having entire procedure well.
[2017-10-31 10:10] VITALS: TEMP 98.1
[2017-10-31] MEDS ORDERED: MEPERIDINE 50 MG/ML SYRINGE IVP ONE (10:22)
[2017-10-31 10:44] VITALS: RESP 18
[2017-10-31 10:54] VITALS: BP 138/84; PULSE 79
== END 2017-10-31 11:29 | disposition home or self-care (01) ==
LOC: OR 08:45
PROVIDERS: ATTEND Orthopaedic Surgery
DX: M23.8X2 Other internal derangements of left knee (principal); Z96.652 Presence of left artificial knee joint; E03.9 Hypothyroidism, unspecified; I10 Essential (primary) hypertension; E78.5 Hyperlipidemia, unspecified; E11.9 Type 2 diabetes mellitus without complications; J45.909 Unspecified asthma, uncomplicated; Z79.84 Long term (current) use of oral hypoglycemic drugs; Z79.1 Long term (current) use of non-steroidal anti-inflammatories (NSAID); Z79.899 Other long term (current) drug therapy; Z88.8 Allergy status to other drugs, medicaments and biological substances
CPT/HCPCS: 27570; J2250; J2175; J3010; J1170; J2704

== ENCOUNTER 2019-02-08 07:05 | Day surgery (SDC) | payer MEDICAID, OTHER ==
[2019-02-06 13:18] VITALS: BMI 36.0
[~2019-02-08 07:05] MED LIST changes: -MIDAZOLAM 2 MG/2 ML VIAL IV PRN; -fentaNYL (PF) 50 MCG/ML 2 ML AMP IV PRN
[2019-02-08 07:29] LABS: Glucose,Whole Blood 141 mg/dL (75-99)
[2019-02-08 07:31] VITALS: TEMP 97.7
[2019-02-08] MEDS ORDERED: LIDOCAINE 1% INJ 10MG/ML (20 ML MDV) ONE (07:33)
[2019-02-08] MEDS ORDERED: PROPOFOL 10 MG/ML 20 ML VIAL IV ONE (07:33)
--- NOTE | 2019-02-08 08:17 | P.PCN ---
Date of Procedure: 02/08/19 Description of Procedure: BRIEF HISTORY: Patient is a 53-year-old pleasant male scheduled for an elective colonoscopy as a part of follow-up after a positive Cologard. The patient denies any change in bowel habits, blood per rectum, diarrhea or constipation. No prior colonoscopy reported. He has reported large polyp in his mother and colon cancer in his grandfather. PROCEDURE PERFORMED: Colonoscopy with polypectomy. PREOPERATIVE DIAGNOSIS: Positive Cologard, no prior colonoscopy, family history of colon cancer. ESTIMATED BLOOD LOSS: Minimal. IV sedation per Anesthesia. PROCEDURE: After informed consent was obtained, the patient, was brought into the endoscopy unit. IV sedation was administered by Anesthesia under continuous monitoring. Digital rectal examination was normal. Initially the Olympus CF-190 flexible video colonoscope was then inserted in the rectum, gradually advanced into the cecum without any difficulty. Careful examination was performed as the scope was gradually being withdrawn. Ileocecal valve and the appendiceal orifice were visualized and appeared normal. Prep was excellent. Mucosa of the cecum, ascending colon, transverse colon, descending colon, sigmoid colon, and rectum appeared normal. Small 4 mm descending colon polyp removed with cold snare polypectomy. Diminutive 2 mm rectal polyp removed with cold forcep polypectomy. Retroflexion was performed in the rectum and no lesions were seen. The patient tolerated the procedure well. IMPRESSION: Diminutive rectal polyp removed with cold forceps. Small descending colon polyp removed with cold snare polypectomy. Normal-appearing colon from rectum to cecum. RECOMMENDATIONS: Findings of this examination were discussed with the patient and his family. Okay to resume diet and medications. Await pathology from polypectomy. Would recommend repeat colonoscopy in 5 years for personal history of colon polyps and family history of colon cancer.
[2019-02-08 08:26] VITALS: BP 130/79; PULSE 71; RESP 16
== END 2019-02-08 08:38 | disposition home or self-care (01) ==
LOC: ORWHC2ENDO 07:05
PROVIDERS: ATTEND Internal Medicine
DX: D12.4 Benign neoplasm of descending colon (principal); K62.1 Rectal polyp; Z80.0 Family history of malignant neoplasm of digestive organs; Z88.8 Allergy status to other drugs, medicaments and biological substances; I10 Essential (primary) hypertension; E78.5 Hyperlipidemia, unspecified; G47.33 Obstructive sleep apnea (adult) (pediatric); F17.210 Nicotine dependence, cigarettes, uncomplicated; Z79.84 Long term (current) use of oral hypoglycemic drugs; Z79.899 Other long term (current) drug therapy
CPT/HCPCS: 88305; 45380; 45385; J2001; J2704

== ENCOUNTER → 2020-01-25 | Outpatient (CLI) | payer OTHER ==
--- NOTE | 2020-01-25 08:55 | MR ---
EXAMINATION TYPE: MR sacrum/coccyx wo con DATE OF EXAM: 01/25/2020 COMPARISON: None. HISTORY: Tail bone pain, fall injury 10 weeks ago. Standard multiplanar, multisequence MRI departmental protocol Multiplanar, multisequence images of the sacrum and coccyx were acquired. FINDINGS: Sacral alar felt maintained bilaterally. Sacroiliac joints are symmetric and felt within no rmal limits. Bone marrow signal intensity is preserved without suspicious edema noted. No acute displ aced sacral or coccygeal fracture seen on sagittal images. Presacral fat is preserved. Visualized bladder appears within normal limits. Prostate gland is normal in size. No concerning pelvic fluid collection is seen. No concerning pelvic adenopathy. IMPRESSION: Fairly unremarkable study. No suspicious findings seen to account for patient's symptoms. No subtle osseous fracture or suspicious osseous edema.
== END | disposition home or self-care (01) ==
LOC: RADMRIMAIN 06:04
PROVIDERS: ATTEND Nurse Practitioner Acute Care
DX: M53.3 Sacrococcygeal disorders, not elsewhere classified (principal)
CPT/HCPCS: 72195

== ENCOUNTER 2021-09-03 09:37 | Observation (INO) | payer OTHER ==
[2021-09-03] MEDS ORDERED: SODIUM CHLORIDE 0.9% 1,000 ML IV STA (10:19)
[2021-09-03 11:00] LABS: Basophils # (A) 0.1 k/uL (0-0.2); Basophils % (A) 1 %; Eosinophils # (A) 0.2 k/uL (0-0.7); Eosinophils % (A) 3 %; HCT 52.8 % (39.0-53.0); HGB 17.5 gm/dL (13.0-17.5); Lymphocytes % (A) 23 %; MCH 30.6 pg (25.0-35.0); MCHC 33.1 g/dL (31.0-37.0); MCV 92.3 fL (80.0-100.0); Mean Platelet Volume 9.5; Monocytes # (A) 0.5 k/uL (0-1.0); Monocytes % (A) 6 %; Neutrophils # (A) 5.6 k/uL (1.3-7.7); Neutrophils % (A) 64 %; Platelet Count 226 k/uL (150-450); RBC 5.72 m/uL (4.30-5.90); WBC 8.7 k/uL (3.8-10.6)
[2021-09-03 11:12] LABS: ALT 28 U/L (4-49); AST 28 U/L (17-59); African American GFR (CKD) >90 (>60 ml/min/1.73 sqM); Alkaline Phosphatase 100 U/L (38-126); Anion Gap 11 mmol/L; Blood Urea Nitrogen 13 mg/dL (9-20); Calcium 10.2 mg/dL (8.4-10.2); Carbon Dioxide 27 mmol/L (22-30); Chloride 103 mmol/L (98-107); Glucose 150 mg/dL (74-99); Magnesium 2.1 mg/dL (1.6-2.3); Non-African American GFR(CKD) 87 (>60 ml/min/1.73 sqM); Potassium 5.2 mmol/L (3.5-5.1); Sodium 141 mmol/L (137-145); Total Bilirubin 0.9 mg/dL (0.2-1.3); Total Protein 8.4 g/dL (6.3-8.2)
[2021-09-03 11:39] LABS: INR 0.9 (<1.2); Partial Thromboplastin Time 24.6 sec (22.0-30.0); Prothrombin Time 10.1 sec (9.0-12.0)
--- NOTE | 2021-09-03 11:43 | ED ---
Chest Pain HPI - General Chief Complaint: Chest Pain Stated Complaint: Chest Pain Time Seen by Provider: 09/03/21 09:59 Source: patient Mode of arrival: ambulatory Limitations: no limitations - History of Present Illness Initial Comments: Patient is a 55-year-old male presenting with chief complaint of chest pain. Patient has a history of [place] in September of last year, he is a patient of Dr. Arellano. Patient states that the pain began 6 days ago. It is located on the right side, it feels like a soreness. Patient states that it is worse with arm movement, w hich made him believe is likely a pulled muscle as he has a strenuous job. Patient states the pain does not change with exertion. Patient states that he has taken nitro several times over the last 6 days which has alleviated the pain. He states that when he started experiencing pain at work they required him to be evaluated. He attempted to get in with Dr. Arellano's office, but patient states he was told to report to the ER. He denies any shortness of breath, palpitations, nausea, vomiting, abdominal pain, headache, fever, chills, cough, hemoptysis, weakness, back pain. - Related Data Home Medications Medication Instructions Recorded Confirmed Albuterol Nebulized [Ventolin 2.5 mg INHALATION RT-QID PRN 12/29/16 09/03/21 Nebulized] Beclomethasone Dipropionate [Qvar 1 puff INHALATION RT-BID 12/29/16 09/03/21 80 mcg] Fluticasone Nasal [place] [Flonase 2 spr EA NOSTRIL DAILY PRN 12/29/16 09/03/21 Nasal [place]] Albuterol Inhaler [Ventolin Hfa 1 puff INHALATION RT-QID PRN 09/03/21 09/03/21 Inhaler] Alogliptin Benzoate [Alogliptin] 25 mg PO DAILY 09/03/21 09/03/21 Aspirin EC [Ecotrin Low Dose] 81 mg PO DAILY 09/03/21 09/03/21 Atorvastatin [Lipitor] 40 mg PO HS 09/03/21 09/03/21 DULoxetine HCL [Cymbalta] 60 mg PO BID 09/03/21 09/03/21 Empagliflozin [Jardiance] 25 mg PO DAILY 09/03/21 09/03/21 Gemfibrozil [Lopid] 600 mg PO AC-BID 09/03/21 09/03/21 Metoprolol Tartrate [Lopressor] 25 mg PO BID 09/03/21 09/03/21 Nitroglycerin Sl Tabs [Nitrostat] 0.4 mg SUBLINGUAL Q5M PRN 09/03/21 09/03/21 Ticagrelor [Brilinta] 90 mg PO BID 09/03/21 09/03/21 glipiZIDE [Glucotrol] 10 mg PO BID 09/03/21 09/03/21 metFORMIN HCL [Glucophage] 1,000 mg PO BID 09/03/21 09/03/21 Allergies Allergy/AdvReac Type Severity Reaction Status Date / Time bupropion [From Wellbutrin] Allergy Rash/Hives Verified 09/03/21 14:15 Review of Systems ROS Statement: Those systems with pertinent positive or pertinent negative responses have been documented in the HPI. ROS Other: All systems not noted in ROS Statement are negative. EKG Findings - EKG Comments: EKG Findings:: Sinus rhythm with rate of 68. Left axis deviation. NC interval 193. QRS duration 105. No acute ST or T-wave changes when compared to previous study. This EKG was also shown to and interpreted by my attending Dr. French. Past Medical History Past Medical History: Asthma, Diabetes Mellitus, Hyperlipidemia, Hypertension, Osteoarthritis (OA), Sleep Apnea/CPAP/BIPAP Additional Past Medical History / Comment(s): ADD, Daytime somnolence, urinary frequency, bilateral shoulder pain History of Any Multi-Drug Resistant Organisms: None Reported Past Surgical History: Joint Replacement, Orthopedic Surgery Additional Past Surgical History / Comment(s): several left knee surgeries,lt knee replacment Past Anesthesia/Blood Transfusion Reactions: No Reported Reaction Past Psychological History: ADD/ADHD Smoking Status: Never smoker Past Alcohol Use History: Rare Past Drug Use History: None Reported - Past Family History Mother Family Medical History: Cancer Father Family Medical History: Coronary Artery Disease (CAD), Deep Vein Thrombosis (DVT) Brother(s) Family Medical History: Sleep Apnea/CPAP/BIPAP Sister(s) Family Medical History: No Reported History Daughter(s) Family Medical History: No Reported History Son(s) Family Medical History: No Reported History General Exam Limitations: no limitations General appearance: alert, in no apparent distress Head exam: Present: atraumatic, normocephalic, normal inspection Eye exam: Present: normal appearance, EOMI. Absent: scleral icterus Neck exam: Present: normal inspection Respiratory exam: Present: normal lung sounds bilaterally. Absent: respiratory distress, wheezes, rales, rhonchi, stridor Cardiovascular Exam: Present: regular rate, normal rhythm, normal heart sounds. Absent: systolic murmur, diastolic murmur, rubs, gallop, clicks Neurological exam: Present: alert, oriented X3, CN II-XII intact Psychiatric exam: Present: normal affect, normal mood Skin exam: Present: warm, dry, intact, normal color. Absent: rash Course Vital Signs 09/03/21 09/03/21 09/03/21 09:51 10:43 12:10 Temperature 98.2 F Pulse Rate 77 70 67 Respiratory 18 18 18 Rate Blood Pressure 135/87 128/88 119/85 O2 Sat by Pulse 98 98 98 Oximetry 09/03/21 15:53 Temperature Pulse Rate 70 Respiratory 18 Rate Blood Pressure 133/83 O2 Sat by Pulse 96 Oximetry Chest Pain [facility] Patient is a 55-year-old male with history of [place] 11 months ago presenting with chief complaint of chest pain. Patient states that for the last 6 days he has been experiencing right-sided chest pain that dissipates with the use of nitro. He is a patient of Dr. Arellano, today he was instructed to report to the ER for evaluation. On examination, lungs are clear to auscultation, patient endorses increased right-sided pain with the use of his right arm. Lab work shows a negative troponin. Chest x-ray is negative for acute process. Patient's HEART score is 4. Given his recent history of [place], he would likely benefit from observation. I discussed this plan with the patient who was agreeable. I spoke with Dr. Kim, who agreed to admit the patient. I discussed this case with my attending Dr. French. Disposition Clinical Impression: Chest pain Disposition: ADMITTED IP TO THIS [facility] Condition: Good Time of Disposition: 12:38 Decision to Admit Reason: Admit from [facility] Decision Date: 09/03/21 Decision Time: 12:38
--- NOTE | 2021-09-03 12:08 | XR ---
EXAMINATION TYPE: XR chest 2V DATE OF EXAM: 09/03/2021 COMPARISON: 07/03/2012 HISTORY: 55-year-old male with chest pain TECHNIQUE: PA and lateral views FINDINGS: Heart mildly enlarged. There is interstitial density. Mild hyperinflation. No consolidation or pleura l effusion. IMPRESSION: Mild cardiomegaly and interstitial changes. Mild hyperinflation. Correlate to exclude underlying COPD or mild CHF with pulmonary vascular congestion. No focal infiltrate seen.
[2021-09-03] MEDS ORDERED: NALOXONE 0.4 MG/ML 1 ML VIAL IV PRN (12:31)
[2021-09-03] MEDS ORDERED: ALBUTEROL NEBULIZED 2.5 MG/3 ML INHALATION PRN (14:30)
[2021-09-03] MEDS ORDERED: NITROGLYCERIN SL TABS 0.4 MG TAB SUBLINGUAL PRN (14:30)
--- NOTE | 2021-09-03 16:10 | P.HPIM ---
History of Present Illness H&P Date: 09/03/21 Chief Complaint: Chest pain 55-year-old male with PMH of CAD, asthma, diabetes mellitus, hypertension, dyslipidemia and sleep apnea presents the ED for chest pain. Patient reports chest pain that started on Tuesday while he was moving a hospital bed. Chest pain is right sided, 6/10 in severity and described as sore in nature. Pain was aggravated with movement of his right arm. His pain persisted into today when his co-workers informed him to go to the ED for medical clearance to go back to work. He denies any diaphoresis, nausea or vomiting. Patient reports [place] in the past and undergoing 2 stents. He is compliant with his medications. He denies any headache, lower extremity edema, nausea vomiting, fever chills, cough, shortness of breath, palpitations, changes in urination or bowel habits. No changes in appetite or weight. He denies any dizziness, numbness/weak ness/tingling of the extremities. In the ED, his vital signs are stable. CBC and coagulation profile was negative. CMP showed potassium of 5.2 and glucose 150. Troponin was less than 0.[address] changes. Chest x-ray showed mild cardiomegaly and interstitial changes. Patient is admitted under observation status to rule out acute coronary syndrome and cardiology consultation. Review of systems was performed and is negative except above. General: [non toxic], [no distress], [appears at stated age] Derm: [warm], [dry] Head: [atraumatic], [normocephalic], [symmetric] Eyes: [EOMI], [no lid lag], [anicteric sclera] Mouth: [no lip lesion], [mucus membranes moist] Cardiovascular: [S1S2 reg], [no murmur] Lungs: [CTA bilateral], [no rhonchi, no rales] , [no accessory muscle use] Abdominal: [soft], [ nontender to palpation], [no guarding], [no appreciable organomegaly] Ext: [no gross muscle atrophy], [no edema], [no contractures] Neuro: [ CN II-XI grossly intact], [no focal neuro deficits] Psych: [Alert], [oriented], [appropriate affect] #Chest pain with history of CAD #Hyperkalemia #Diabetes mellitus with hyperglycemia #Morbid obesity Chronic conditions: Asthma, hypertension, dyslipidemia, sleep apnea Patient presents with atypical chest pain. Initial troponin is negative. Troponins will be trended and ACS will be ruled out. Echocardiogram has been ordered. Telemetry monitoring. Cardiology will be consulted for further management of this patient. Restart ASA 81 mg PO QD, Lipitor 80 mg PO QHS, Ticagrelor 90 mg PO BID and Metoprolol 25 mg PO BID. K 5.2. Repeat BMP tomorrow. Start low dose insulin sliding scale along with accuchecks four times a day and hypoglycemic precautions. Patient would benefit from a structured weight loss program. Restart Cymbalta. Restart Gemfibrozil. Albuterol neb as needed for shortness of breath and wheezing. DVT prophylaxis: [Heparin] Discussed with: [Patient, ED physician] Anticipated discharge: [1-2 days] Anticipated discharge place: [Home] A total of [45] minutes was spent on the care of this complex patient more than 50% of the time was spent in counseling and care coordination. Patient names his decision maker if he cant make decisions for himself. Patient would like to be FULL CODE. Past Medical History Past Medical History: Asthma, Coronary Artery Disease (CAD), Chest Pain / Angina, Diabetes Mellitus, Hyperlipidemia, Hypertension, Myocardial Infarction ([place]), Osteoarthritis (OA), Sleep Apnea/CPAP/BIPAP Additional Past Medical History / Comment(s): NIDDM type II, neuropathy bilateral feet, CHIOMA with Cpap, narcolepsy, bilateral shoulder pain, + cologuard/colonoscopy with benign polypectomy, concussions, urine frequency, allergic rhinitis, Last Myocardial Infarction Date:: 10/15/20 History of Any Multi-Drug Resistant Organisms: None Reported Past Surgical History: Heart Catheterization With Stent, Joint Replacement, Orthopedic Surgery Additional Past Surgical History / Comment(s): PCI with 2 stents to [place], several left knee surgeries, lt knee replacment, colonoscopy/benign polypectomy, vasectomy. Past Anesthesia/Blood Transfusion Reactions: No Reported Reaction Date of Last Stent Placement:: 10/15/20 Smoking Status: Former smoker - Past Family History Mother Family Medical History: Cancer Father Family Medical History: Coronary Artery Disease (CAD), Deep Vein Thrombosis (DVT) Additional Family Medical History / Comment(s): Possible DVT, PCI/stent Brother(s) Family Medical History: Sleep Apnea/CPAP/BIPAP Sister(s) Family Medical History: No Reported History Daughter(s) Family Medical History: No Reported History Son(s) Family Medical History: No Reported History Medications and Allergies Home Medications Medication Instructions Recorded Confirmed Type Albuterol Nebulized [Ventolin 2.5 mg INHALATION RT-QID PRN 12/29/16 09/03/21 History Nebulized] Beclomethasone Dipropionate [Qvar 1 puff INHALATION RT-BID 12/29/16 09/03/21 History 80 mcg] Fluticasone Nasal [place] [Flonase 2 spr EA NOSTRIL DAILY PRN 12/29/16 09/03/21 History Nasal [place]] Albuterol Inhaler [Ventolin Hfa 1 puff INHALATION RT-QID PRN 09/03/21 09/03/21 History Inhaler] Alogliptin Benzoate [Alogliptin] 25 mg PO DAILY 09/03/21 09/03/21 History Aspirin EC [Ecotrin Low Dose] 81 mg PO DAILY 09/03/21 09/03/21 History Atorvastatin [Lipitor] 40 mg PO HS 09/03/21 09/03/21 History DULoxetine HCL [Cymbalta] 60 mg PO BID 09/03/21 09/03/21 History Empagliflozin [Jardiance] 25 mg PO DAILY 09/03/21 09/03/21 History Gemfibrozil [Lopid] 600 mg PO AC-BID 09/03/21 09/03/21 History Metoprolol Tartrate [Lopressor] 25 mg PO BID 09/03/21 09/03/21 History Nitroglycerin Sl Tabs [Nitrostat] 0.4 mg SUBLINGUAL Q5M PRN 09/03/21 09/03/21 History Ticagrelor [Brilinta] 90 mg PO BID 09/03/21 09/03/21 History glipiZIDE [Glucotrol] 10 mg PO BID 09/03/21 09/03/21 History metFORMIN HCL [Glucophage] 1,000 mg PO BID 09/03/21 09/03/21 History Allergies Allergy/AdvReac Type Severity Reaction Status Date / Time bupropion [From Wellbutrin] Allergy Rash/Hives Verified 09/03/21 14:15 Physical Exam Vitals: Vital Signs Temp Pulse Resp BP Pulse Ox 09/03/21 12:10 67 18 119/85 98 09/03/21 10:43 70 18 128/88 98 09/03/21 09:51 98.2 F 77 18 135/87 98 Intake and Output 09/03/21 09/03/21 09/03/21 06:59 14:59 22:59 Other: Weight 104.326 kg Results CBC & Chem 7: 09/03/21 10:41 09/03/21 10:41 Labs: Abnormal Lab Results - Last 24 Hours (Table) 09/03/21 Range/Units 10:41 Potassium 5.2 H (3.5-5.1) mmol/L Glucose 150 H (74-99) mg/dL Total Protein 8.4 H (6.3-8.2) g/dL Thrombosis Risk Factor Assmnt - Choose All That Apply Any of the Below Risk Factors Present?: Yes Each Factor Represents 1 point: Age 41-60 years, Obesity (BMI >25) Other Risk Factors: No Other congenital or acquired thrombophilia - If yes, enter type in comment: No Thrombosis Risk Factor Assessment Total Risk Factor Score: 2 Thrombosis Risk Factor Assessment Level: Low Risk
[2021-09-03] MEDS: DULoxetine HCL 60 MG CAPSULE.DR PO SCH (20:49)
[2021-09-03] MEDS: TICAGRELOR 90 MG TAB PO SCH (20:49)
[2021-09-03] MEDS: METOPROLOL TARTRATE 25 MG TAB PO SCH (20:49)
[2021-09-03] MEDS: HEPARIN SODIUM,PORCINE/PF 5,000 UNIT/0.5 ML SYRINGE SQ SCH (20:50)
[2021-09-03] MEDS ORDERED: ATORVASTATIN 80 MG TAB PO SCH (21:00)
[2021-09-04 06:05] VITALS: TEMP 97.6
[2021-09-04 07:32] VITALS: BP 123/79; PULSE 55; RESP 18
[2021-09-04] MEDS: DULoxetine HCL 60 MG CAPSULE.DR PO SCH (08:34)
[2021-09-04] MEDS: TICAGRELOR 90 MG TAB PO SCH (08:34)
[2021-09-04] MEDS: HEPARIN SODIUM,PORCINE/PF 5,000 UNIT/0.5 ML SYRINGE SQ SCH (08:34)
[2021-09-04] MEDS: METOPROLOL TARTRATE 25 MG TAB PO SCH (08:34)
[2021-09-04] MEDS ORDERED: ASPIRIN 81 MG PO SCH (09:00)
[2021-09-04] MEDS ORDERED: FENOFIBRATE 160 MG TAB PO SCH (09:00)
--- NOTE | 2021-09-04 09:33 | P.DS ---
Providers Date of admission: 09/03/21 14:15 Expected date of discharge: 09/04/21 Attending physician: Devon Kim MD Consults: 09/03/21 12:37 Consult Physician Urgent Consulting Provider: [facility] Consult Reason/Comments: chest pain Do you want consulting provider notified?: Yes Primary care physician: [facility] Course: 55-year-old male with PMH of CAD, asthma, diabetes mellitus, hypertension, dyslipidemia and sleep apnea presents the ED for chest pain. Patient reports chest pain that started on Tuesday while he was moving a hospital bed. Chest pain is right sided, 6/10 in severity and described as sore in nature. Pain was aggravated with movement of his right arm. His pain persisted into today when his co-workers informed him to go to the ED for medical clearance to go back to work. He denies any diaphoresis, nausea or vomiting. Patient reports [place] in the past and undergoing 2 stents. He is compliant with his medications. He denies any headache, lower extremity edema, nausea vomiting, fever chills, cough, shortness of breath, palpitations, changes in urination or bowel habits. No changes in appetite or weight. He denies any dizziness, numbness/weakness/tingling of the extremities. In the ED, his vital signs are stable. CBC and coagulation profile was negative. CMP showed potassium of 5.2 and glucose 150. Troponin was less than 0.[address] changes. Chest x-ray showed mild cardiomegaly and interstitial changes. Patient is admitted under observation status to rule out acute coronary syndrome and cardiology consultation. Review of systems was performed and is negative except above. Troponins were trended and ACS was ruled out. Echocardiogram was obtained and pending at the time of this note. His chest pain was thought to be atypical and musculoskeletal nature. Cardiology was consulted and cleared the patient for discharge. Repeat potassium was within normal limits. Patient was seen and examined on 09/04/2021. He reported complete resolution of his chest pain. He has been cleared to go back to work by cardiology. He is advised to follow-up with his PCP within 1-2 days of discharge. Follow-up with cardiology within 1 week of discharge. Come back to the ED or call 911 for worsening chest pain, shortness breath, palpitations or lightheadedness. Patient verbalized understa nding of the plan. This complication discharge to about 45 minutes to complete. General: [non toxic], [no distress], [appears at stated age] Derm: [warm], [dry] Head: [atraumatic], [normocephalic], [symmetric] Eyes: [EOMI], [no lid lag], [anicteric sclera] Mouth: [no lip lesion], [mucus membranes moist] Cardiovascular: [S1S2 reg], [no murmur] Lungs: [CTA bilateral], [no rhonchi, no rales] , [no accessory muscle use] Abdominal: [soft], [ nontender to palpation], [no guarding], [no appreciable organomegaly] Ext: [no gross muscle atrophy], [no edema], [no contractures] Neuro: [no focal neuro deficits] Psych: [Alert], [oriented], [appropriate affect] Discharge Diagnosis: #Chest pain with history of CAD #Diabetes mellitus with hyperglycemia #Morbid obesity Resolved: Hyperkalemia Chronic conditions: Asthma, hypertension, dyslipidemia, sleep apnea Pertinent Studies: CXR Echocardiogram EKG/Troponin Patient Condition at Discharge: Good Plan - Discharge Summary Discharge Rx Participant: No New Discharge Prescriptions: Continue Albuterol Nebulized [Ventolin Nebulized] 2.5 mg INHALATION RT-QID PRN PRN Reason: Dyspnea Fluticasone Nasal [place] [Flonase Nasal [place]] 2 spr EA NOSTRIL DAILY PRN PRN Reason: allergies Beclomethasone Dipropionate [Qvar 80 mcg] 1 puff INHALATION RT-BID Albuterol Inhaler [Ventolin Hfa Inhaler] 1 puff INHALATION RT-QID PRN PRN Reason: Shortness Of Breath Aspirin EC [Ecotrin Low Dose] 81 mg PO DAILY Atorvastatin [Lipitor] 40 mg PO HS DULoxetine HCL [Cymbalta] 60 mg PO BID Empagliflozin [Jardiance] 25 mg PO DAILY metFORMIN HCL [Glucophage] 1,000 mg PO BID Alogliptin Benzoate [Alogliptin] 25 mg PO DAILY Gemfibrozil [Lopid] 600 mg PO AC-BID glipiZIDE [Glucotrol] 10 mg PO BID Metoprolol Tartrate [Lopressor] 25 mg PO BID Nitroglycerin Sl Tabs [Nitrostat] 0.4 mg SUBLINGUAL Q5M PRN PRN Reason: Chest Pain Ticagrelor [Brilinta] 90 mg PO BID Discharge Medication List Albuterol Nebulized [Ventolin Nebulized] 2.5 mg INHALATION RT-QID PRN 12/29/16 [History] Beclomethasone Dipropionate [Qvar 80 mcg] 1 puff INHALATION RT-BID 12/29/16 [History] Fluticasone Nasal [place] [Flonase Nasal [place]] 2 spr EA NOSTRIL DAILY PRN 12/29/16 [History] Albuterol Inhaler [Ventolin Hfa Inhaler] 1 puff INHALATION RT-QID PRN 09/03/21 [History] Alogliptin Benzoate [Alogliptin] 25 mg PO DAILY 09/03/21 [History] Aspirin EC [Ecotrin Low Dose] 81 mg PO DAILY 09/03/21 [History] Atorvastatin [Lipitor] 40 mg PO HS 09/03/21 [History] DULoxetine HCL [Cymbalta] 60 mg PO BID 09/03/21 [History] Empagliflozin [Jardiance] 25 mg PO DAILY 09/03/21 [History] Gemfibrozil [Lopid] 600 mg PO AC-BID 09/03/21 [History] Metoprolol Tartrate [Lopressor] 25 mg PO BID 09/03/21 [History] Nitroglycerin Sl Tabs [Nitrostat] 0.4 mg SUBLINGUAL Q5M PRN 09/03/21 [History] Ticagrelor [Brilinta] 90 mg PO BID 09/03/21 [History] glipiZIDE [Glucotrol] 10 mg PO BID 09/03/21 [History] metFORMIN HCL [Glucophage] 1,000 mg PO BID 09/03/21 [History] Follow up Appointment(s)/Referral(s): Janes Arellano MD [STAFF PHYSICIAN] - [address] [facility],Clinic [Primary Care Provider] - 1-2 days Activity/Diet/Wound Care/Special Instructions: Diet: Cardiac FU with PCP within 1-2 days of discharge. FU with Cardiology within 1 week of discharge. Take all medications as advised. Come back to the ED or call 911 for worsening chest pain, shortness of breath, palpitations, lightheadedness. Discharge Disposition: HOME SELF-CARE
--- NOTE | 2021-09-04 10:29 | P.CRDCN ---
History of Present Illness Consult date: 09/04/21 History of present illness: HISTORY OF PRESENT ILLNESS: This is a 55 year old male with a past medical history significant for CAD with previous stenting, hypertension, hyperlipidemia, and congestive heart failure. Patient follows in the office with Dr. Arellano. We have been asked to see the patient in consultation for chest pain. Patient examined at the bedside. Patient reports on Tuesday he began having some chest pain and thought he had pulled a muscle. He reports he had pain every time he moved his right arm. He states that he began having some chest pain on the right side of his chest but he took some Motrin and nitro and within about 10 minutes his pain subsided. He states on Tuesday he went to work and was having some mild chest pain. He sold his coworker about this with and reported the patient's chest pain. The patient was told he needed to be checked out by a early childhood education worker before he could return to work. He denies having any chest pain since the incident at work. The patient does has a history of CAD and underwent stenting at [facility] in the past. He reports his symptoms are not similar to when he had his stents placed. Patient saw Dr. Arellano about 2-3 weeks and was told he could stop his Brilinta at the end of this month. Patient currently denies chest pain or pressure. * EKG reveals sinus mechanism with no signs of acute ischemia * Chest xray mild cardiomegaly and interstitial changes. Mild hyperinflation. Correlate to exclude underlying COPD or mild HF with pulmonary vascular congestion. No focal infiltrates seen. * Laboratory data: WBC 8.7. Hemoglobin 17.5. Platelet count 226. Sodium 141. Potassium 5.2. BUN 13. Creatinine 0.97. Magnesium 2.1. Troponin negative 3 * Current home cardiac medications include Brilinta 90 mg twice a day, metoprolol tartrate 25 mg twice a day, gemfibrozil 600 mg twice a day, Lipitor 40 mg at night, aspirin 81 mg daily REVIEW OF SYSTEMS: At the time of my exam: CONSTITUTIONAL: Denies fever or chills. HEENT: Denies blurred vision, vision changes, or eye pain. Denies hemoptysis CARDIOVASCULAR: Denies chest pain. Denies orthopnea. Denies PND. Denies palpitations RESPIRATORY: Denies shortness of breath. GASTROINTESTINAL: Denies abdominal pain. Denies nausea or vomiting. HEMATOLOGIC: Denies bleeding disorders. GENITOURINARY: Denies any blood in urine. SKIN: Denies pruitis. Denies rash. PHYSICAL EXAM: VITAL SIGNS: Reviewed. GENERAL: Well-developed in no acute distress. HEENT: Head is normocephalic. Pupils are equal, round. Sclerae anicteric. Mucous membranes of the mouth are moist. Neck supple. No JVD or thyromegaly LUNGS: Respirations even and unlabored. Lungs essentially clear to auscultation bilaterally. HEART: Regular rate and rhythm. S1 and S2 heard. ABDOMEN: Soft. Nondistended. Nontender. EXTREMITIES: Normal range of motion. No clubbing or cyanosis. Peripheral pulses intact. No lower extremity edema NEUROLOGIC: Awake and alert. Oriented x 3. ASSESSMENT: Chest pain, troponins negative 3 Coronary artery disease with previous stenting Hypertension Hyperlipidemia Chronic congestive heart failure, type unknown PLAN: An acute coronary event has been ruled out Patient is stable for discharge home today from a cardiac standpoint He is to follow up outpatient with Dr. Arellano Nurse practitioner note has been reviewed by physician. Signing provider agrees with the documented findings, assessment, and plan of care. Past Medical History Past Medical History: Asthma, Diabetes Mellitus, Hyperlipidemia, Hypertension, Osteoarthritis (OA), Sleep Apnea/CPAP/BIPAP Additional Past Medical History / Comment(s): ADD, Daytime somnolence, urinary frequency, bilateral shoulder pain Last Myocardial Infarction Date:: 10/15/20 History of Any Multi-Drug Resistant Organisms: None Reported Past Surgical History: Joint Replacement, Orthopedic Surgery Additional Past Surgical History / Comment(s): several left knee surgeries,lt knee replacment Past Anesthesia/Blood Transfusion Reactions: No Reported Reaction Date of Last Stent Placement:: 10/15/20 Past Psychological History: ADD/ADHD Smoking Status: Never smoker Past Alcohol Use History: Rare Past Drug Use History: None Reported - Past Family History Mother Family Medical History: Cancer Father Family Medical History: Coronary Artery Disease (CAD), Deep Vein Thrombosis (DVT) Additional Family Medical History / Comment(s): Possible DVT, PCI/stent Brother(s) Family Medical History: Sleep Apnea/CPAP/BIPAP Sister(s) Family Medical History: No Reported History Daughter(s) Family Medical History: No Reported History Son(s) Family Medical History: No Reported History Medications and Allergies Home Medications Medication Instructions Recorded Confirmed Type Albuterol Nebulized [Ventolin 2.5 mg INHALATION RT-QID PRN 12/29/16 09/03/21 History Nebulized] Beclomethasone Dipropionate [Qvar 1 puff INHALATION RT-BID 12/29/16 09/03/21 History 80 mcg] Fluticasone Nasal [place] [Flonase 2 spr EA NOSTRIL DAILY PRN 12/29/16 09/03/21 History Nasal [place]] Albuterol Inhaler [Ventolin Hfa 1 puff INHALATION RT-QID PRN 09/03/21 09/03/21 History Inhaler] Alogliptin Benzoate [Alogliptin] 25 mg PO DAILY 09/03/21 09/03/21 History Aspirin EC [Ecotrin Low Dose] 81 mg PO DAILY 09/03/21 09/03/21 History Atorvastatin [Lipitor] 40 mg PO HS 09/03/21 09/03/21 History DULoxetine HCL [Cymbalta] 60 mg PO BID 09/03/21 09/03/21 History Empagliflozin [Jardiance] 25 mg PO DAILY 09/03/21 09/03/21 History Gemfibrozil [Lopid] 600 mg PO AC-BID 09/03/21 09/03/21 History Metoprolol Tartrate [Lopressor] 25 mg PO BID 09/03/21 09/03/21 History Nitroglycerin Sl Tabs [Nitrostat] 0.4 mg SUBLINGUAL Q5M PRN 09/03/21 09/03/21 History Ticagrelor [Brilinta] 90 mg PO BID 09/03/21 09/03/21 History glipiZIDE [Glucotrol] 10 mg PO BID 09/03/21 09/03/21 History metFORMIN HCL [Glucophage] 1,000 mg PO BID 09/03/21 09/03/21 History Allergies Allergy/AdvReac Type Severity Reaction Status Date / Time bupropion [From Wellbutrin] Allergy Rash/Hives Verified 09/03/21 14:15 Physical Exam Vitals: Vital Signs Temp Pulse Pulse Resp BP BP Pulse Ox 09/04/21 07:00 97.6 F 55 L 18 123/79 98 09/04/21 01:51 97.6 F 69 16 110/68 97 09/03/21 20:03 98.3 F 71 16 129/74 95 09/03/21 19:01 76 18 112/74 95 09/03/21 15:53 70 18 133/83 96 09/03/21 12:10 67 18 119/85 98 09/03/21 10:43 70 18 128/88 98 09/03/21 09:51 98.2 F 77 18 135/87 98 Intake and Output 09/03/21 09/04/21 09/04/21 22:59 06:59 14:59 Other: # Voids 2 Results 09/03/21 10:41 09/03/21 19:03 Cardiac Enzymes 09/03/21 09/03/21 09/03/21 Range/Units 10:41 10:41 16:05 AST 28 (17-59) U/L Troponin I <0.012 <0.012 (0.000-0.034) ng/mL 09/03/21 Range/Units 19:03 AST (17-59) U/L Troponin I <0.012 (0.000-0.034) ng/mL Coagulation 09/03/21 Range/Units 10:41 PT 10.1 (9.0-12.0) sec APTT 24.6 (22.0-30.0) sec CBC 09/03/21 Range/Units 10:41 WBC 8.7 (3.8-10.6) k/uL RBC 5.72 (4.30-5.90) m/uL Hgb 17.5 (13.0-17.5) gm/dL Hct 52.8 (39.0-53.0) % Plt Count 226 (150-450) k/uL Comprehensive Metabolic Panel 09/03/21 09/03/21 Range/Units 10:41 19:03 Sodium 141 (137-145) mmol/L Potassium 5.2 H 4.9 (3.5-5.1) mmol/L Chloride 103 (98-107) mmol/L Carbon Dioxide 27 (22-30) mmol/L BUN 13 (9-20) mg/dL Creatinine 0.97 (0.66-1.25) mg/dL Glucose 150 H (74-99) mg/dL Calcium 10.2 (8.4-10.2) mg/dL AST 28 (17-59) U/L ALT 28 (4-49) U/L Alkaline Phosphatase 100 (38-126) U/L Total Protein 8.4 H (6.3-8.2) g/dL Albumin 5.0 (3.5-5.0) g/dL Current Medications Generic Name Dose Route Start Last Admin Trade Name Freq PRN Reason Stop Dose Admin Albuterol Sulfate 2.5 mg 09/03/21 14:30 Albuterol Nebulized 2.5 Mg/3 Ml INHALATION RT-QID PRN Dyspnea Aspirin 81 mg 09/04/21 09:00 09/04/21 08:34 Aspirin 81 Mg PO 81 mg DAILY SHANDA Administration Atorvastatin Calcium 40 mg 09/03/21 21:00 09/03/21 20:49 Atorvastatin 80 Mg Tab PO 40 mg HS SHANDA Administration Duloxetine HCl 60 mg 09/03/21 21:00 09/04/21 08:34 Duloxetine Hcl 60 Mg Capsule.Dr PO 60 mg BID SHANDA Administration Fenofibrate 160 mg 09/04/21 09:00 09/04/21 08:34 Fenofibrate 160 Mg Tab PO 160 mg DAILY SHANDA Administration Heparin Sodium (Porcine) 5,000 unit 09/04/21 00:00 09/04/21 08:34 Heparin Sodium,Porcine/Pf 5,000 Unit/0.5 Ml Syringe SQ Not Given Q8HR [facility] Metoprolol Tartrate 25 mg 09/03/21 21:00 09/04/21 08:34 Metoprolol Tartrate 25 Mg Tab PO Not Given BID SHANDA Naloxone HCl 0.2 mg 09/03/21 12:31 Naloxone 0.4 Mg/Ml 1 Ml Vial IV Q2M PRN Opioid Reversal Nitroglycerin 0.4 mg 09/03/21 14:30 Nitroglycerin Sl Tabs 0.4 Mg Tab SUBLINGUAL Q5M PRN Chest Pain Ticagrelor 90 mg 09/03/21 21:00 09/04/21 08:34 Ticagrelor 90 Mg Tab PO 90 mg BID SHANDA Administration Intake and Output 09/03/21 09/04/21 09/04/21 22:59 06:59 14:59 Other: # Voids 2 09/03/21 10:41 09/03/21 19:03
--- NOTE | 2021-09-09 15:40 | CA ---
Transthoracic Echo Report Name: Marshal Cordon Age: 55 Gender: M : 1965 Exam Date: 09/03/2021 14:59 Exam Location: [place] [facility] Ht (in): 67 Wt (lb): 230 Ordering Physician: Denita Berrios MD Attending/Referring Phys: Ornamental Painter Keily Vance RDCS Procedure CPT: Indications: Chest Pain Cardiac Hx: Technical Quality: Good Contrast 1: Total Dose (mL): Contrast 2: Total Dose (mL): MEASUREMENTS (Male / Female) Normal Values 2D ECHO LV Diastolic Diameter PLAX 4.6 cm 4.2 - 5.9 / 3.9 - 5.3 cm LV Systolic Diameter PLAX 3.5 cm IVS Diastolic Thickness 1.4 cm 0.6 - 1.0 / 0.6 - 0.9 cm LVPW Diastolic Thickness 1.5 cm 0.6 - 1.0 / 0.6 - 0.9 cm LV Relative Wall Thickness 0.6 RV Internal Dim ED PLAX 2.7 cm LA Volume 34.7 cm??? 18 - 58 / 22 - 52 cm??? M-MODE Aortic Root Diameter MM 3.1 cm LA Systolic Diameter MM 3.0 cm LA Ao Ratio MM 1.0 MV E Point Septal Separation 1.6 cm AV Cusp Separation MM 2.1 cm DOPPLER AV Peak Velocity 138.6 cm/s AV Peak Gradient 7.7 mmHg AI Peak Velocity 355.3 cm/s AI Peak Gradient 50.5 mmHg AI Pressure Half Time 1054.0 ms MV Area PHT 3.3 cm??? MR Peak Velocity 120.6 cm/s MR Peak Gradient 5.8 mmHg Mitral E Point Velocity 92.8 cm/s Mitral A Point Velocity 79.5 cm/s Mitral E to A Ratio 1.2 MV Deceleration Time 230.9 ms MV E' Velocity 8.2 cm/s Mitral E to MV E' Ratio 11.4 TR Peak Velocity 108.4 cm/s TR Peak Gradient 4.7 mmHg Right Ventricular Systolic Press 9.3 mmHg FINDINGS Left Ventricle Mildly increased septal wall thickness. Left ventricular cavity size normal. Left ventricular ejection fraction is estimated at 55-60% Right Ventricle The right ventricle is normal in size and function. Right Atrium The right atrium is normal in size. Left Atrium The left atrium is normal in size. Mitral Valve Structurally normal mitral valve without significant stenosis or prolapse. There is trace mitral regurgitation. Aortic Valve Structurally normal aortic valve without significant sclerosis or stenosis. There is mild aortic regurgitation. Tricuspid Valve Structurally normal tricuspid valve without significant stenosis. Pulmonary artery systolic pressure is normal. Trace tricuspid regurgitation. Pulmonic Valve Structurally normal pulmonic valve without significant stenosis. There is no pulmonic regurgitation. Pericardium Normal pericardium without effusion. Aorta Normal aortic root dimension. CONCLUSIONS Mildly increased septal wall thickness. Left ventricular ejection fraction is estimated at 55-60% There is trace mitral regurgitation. Previewed by: Dr. Modesto Hwang DO (Electronically Signed) Final Date: 04 Sep 2021 12:03
== END 2021-09-04 10:52 | disposition home or self-care (01) ==
LOC: EC 09:37 → 6NMEDSUR 14:15
PROVIDERS: ADMIT Internal Medicine; ATTEND Internal Medicine
DX: R07.89 Other chest pain (principal); I25.10 Atherosclerotic heart disease of native coronary artery without angina pectoris; E11.65 Type 2 diabetes mellitus with hyperglycemia; E66.01 Morbid (severe) obesity due to excess calories; Z68.36 Body mass index [BMI] 36.0-36.9, adult; E87.5 Hyperkalemia; J45.909 Unspecified asthma, uncomplicated; E78.5 Hyperlipidemia, unspecified; I25.2 Old myocardial infarction; I11.0 Hypertensive heart disease with heart failure; I50.9 Heart failure, unspecified; M19.90 Unspecified osteoarthritis, unspecified site; R35.0 Frequency of micturition; M25.512 Pain in left shoulder; M25.511 Pain in right shoulder; F90.9 Attention-deficit hyperactivity disorder, unspecified type; G47.33 Obstructive sleep apnea (adult) (pediatric); E11.40 Type 2 diabetes mellitus with diabetic neuropathy, unspecified; G47.419 Narcolepsy without cataplexy; Y99.0 Civilian activity done for income or pay; Z79.82 Long term (current) use of aspirin; Z79.899 Other long term (current) drug therapy; Z79.84 Long term (current) use of oral hypoglycemic drugs; Z79.02 Long term (current) use of antithrombotics/antiplatelets; Z88.8 Allergy status to other drugs, medicaments and biological substances; Z96.652 Presence of left artificial knee joint; Z86.010 Personal history of colon polyps; Z87.891 Personal history of nicotine dependence; Z95.5 Presence of coronary angioplasty implant and graft; X50.9XXA Other and unspecified overexertion or strenuous movements or postures, initial encounter; Z71.3 Dietary counseling and surveillance; Z71.9 Counseling, unspecified; Z82.49 Family history of ischemic heart disease and other diseases of the circulatory system; Z80.9 Family history of malignant neoplasm, unspecified; Z84.89 Family history of other specified conditions
CPT/HCPCS: 99285; 36415; 93005; 93306; 83880; 80053; 83735; 84132; 84484; 85025; 85610; 85730; 71046; G0378 ×2

== ENCOUNTER 2022-02-26 10:57 | Emergency (ER) | payer OTHER ==
[2022-02-26 11:03] VITALS: TEMP 98.5
[2022-02-26] MEDS ORDERED: PROPARACAINE 0.5% OPHTH DROPS 15 ML BTL BOTH EYES STA (12:20)
[2022-02-26] MEDS ORDERED: FLUORESCEIN STRIPS 1 MG STRIP BOTH EYES ONE (12:20)
--- NOTE | 2022-02-26 12:23 | ED ---
General Adult HPI - General Chief complaint: Eye Problems Stated complaint: Eye Infection,Sent by [facility] Time Seen by Provider: 02/26/22 12:00 Source: patient Mode of arrival: ambulatory Limitations: no limitations - History of Present Illness Initial comments: Dictation was produced using [employer] dictation software. please excuse any gramma tical, word or spelling errors. Chief Complaint: 56-year-old male presents emergency department for left eye infection History of Present Illness: Patient is a 56-year-old male presents to the emergency department for left eye infection. Patient has had orbital cellulitis couple times in the past. Patient states that yesterday his eyes started to feel painful. When he woke up with significant swelling to the left lower eye. He states he does have some mild pain with lateral gaze. Denies any fever, chills or night sweats. Patient states that he's been admitted to the hospital for eye infection. Patient denies any visual changes. The ROS documented in this emergency department record has been reviewed and confirmed by me. Those systems with pertinent positive or negative responses have been documented in the HPI. All other systems are other negative and/or noncontributory. PHYSICAL EXAM: General Impression: Alert and oriented x3, not in acute distress HEENT: Normocephalic atraumatic, extra-ocular movements intact, pupils equal and reactive to light bilaterally, mucous membranes moist. Ocular: Swelling to the lower eyelid of the left eye, there is scleral i njection, there does appear to be some discharge elected at the lower eyelid fornix, palpation to the globe with close eye leads feels symmetrical and does not induce pain, pupils round reactive to light and symmetrical Cardiovascular: Heart regular rate and rhythm Chest: Able to complete full sentences, no retractions, no tachypnea Musculoskeletal: Pulses present and equal in all extremities, no peripheral edema Motor: no focal deficits noted Neurological: CN II-XII grossly intact, no focal motor or sensory deficits noted Skin: Intact with no visualized rashes Psych: Normal affect and mood ED course: 56-year-old female presents emergency department for concerns of left eye infection. Patient is reported history of multiple bouts of orbital cellulitis. Most of the swelling appears to be to the left lower eyelid. Laboratory evaluation obtained. CBC, coag panel, metabolic panel is un remarkable. Computed tomography scan of the orbits shows mild preseptal cellulitis on the left. Patient observed in emergency department for 3 hours. Reevaluated at bedside at 2:10 PM. Patient's well-appearing. Disposition options were discussed. Patient is agreeable for outpatient antibiotics, discharge and follow-up with primary care doctor. Return precautions discussed. Patient discharged. Patient also given referral to ophthalmology. - Related Data Home Medications Medication Instructions Recorded Confirmed Albuterol Nebulized [Ventolin 2.5 mg INHALATION RT-QID PRN 12/29/16 09/03/21 Nebulized] Beclomethasone Dipropionate [Qvar 1 puff INHALATION RT-BID 12/29/16 09/03/21 80 mcg] Fluticasone Nasal [place] [Flonase 2 spr EA NOSTRIL DAILY PRN 12/29/16 09/03/21 Nasal [place]] Albuterol Inhaler [Ventolin Hfa 1 puff INHALATION RT-QID PRN 09/03/21 09/03/21 Inhaler] Alogliptin Benzoate [Alogliptin] 25 mg PO DAILY 09/03/21 09/03/21 Aspirin EC [Ecotrin Low Dose] 81 mg PO DAILY 09/03/21 09/03/21 Atorvastatin [Lipitor] 40 mg PO HS 09/03/21 09/03/21 DULoxetine HCL [Cymbalta] 60 mg PO BID 09/03/21 09/03/21 Empagliflozin [Jardiance] 25 mg PO DAILY 09/03/21 09/03/21 Metoprolol Tartrate [Lopressor] 25 mg PO BID 09/03/21 09/03/21 Nitroglycerin Sl Tabs [Nitrostat] 0.4 mg SUBLINGUAL Q5M PRN 09/03/21 09/03/21 Ticagrelor [Brilinta] 90 mg PO BID 09/03/21 09/03/21 gemfibroziL [Lopid] 600 mg PO AC-BID 09/03/21 09/03/21 glipiZIDE [Glucotrol] 10 mg PO BID 09/03/21 09/03/21 metFORMIN HCL [Glucophage] 1,000 mg PO BID 09/03/21 09/03/21 Allergies Allergy/AdvReac Type Severity Reaction Status Date / Time bupropion [From Wellbutrin] Allergy Rash/Hives Verified 02/26/22 11:03 Review of Systems ROS Statement: Those systems with pertinent positive or pertinent negative responses have been documented in the HPI. ROS Other: All systems not noted in ROS Statement are negative. Past Medical History Past Medical History: Asthma, Diabetes Mellitus, Hyperlipidemia, Hypertension, Osteoarthritis (OA), Sleep Apnea/CPAP/BIPAP Additional Past Medical History / Comment(s): ADD, Daytime somnolence, urinary frequency, bilateral shoulder pain Last Myocardial Infarction Date:: 10/15/20 History of Any Multi-Drug Resistant Organisms: None Reported Past Surgical History: Joint Replacement, Orthopedic Surgery Additional Past Surgical History / Comment(s): several left knee surgeries,lt knee replacment Past Anesthesia/Blood Transfusion Reactions: No Reported Reaction Date of Last Stent Placement:: 10/15/20 Past Psychological History: ADD/ADHD Smoking Status: Never smoker Past Alcohol Use History: Rare Past Drug Use History: None Reported - Past Family History Mother Family Medical History: Cancer Father Family Medical History: Coronary Artery Disease (CAD), Deep Vein Thrombosis (DVT) Additional Family Medical History / Comment(s): Possible DVT, PCI/stent Brother(s) Family Medical History: Sleep Apnea/CPAP/BIPAP Sister(s) Family Medical History: No Reported History Daughter(s) Family Medical History: No Reported History Son(s) Family Medical History: No Reported History General Exam Limitations: no limitations Course Vital Signs 02/26/22 11:01 Temperature 98.5 F Pulse Rate 89 Respiratory 20 Rate Blood Pressure 159/81 O2 Sat by Pulse 96 Oximetry Medical Decision Making - Lab Data Result diagrams: 02/26/22 12:28 02/26/22 12:28 Lab Results 02/26/22 02/26/22 02/26/22 Range/Units 12:28 12:28 12:28 WBC 9.1 (3.8-10.6) k/uL RBC 5.55 (4.30-5.90) m/uL Hgb 17.6 H (13.0-17.5) gm/dL Hct 49.6 (39.0-53.0) % MCV 89.4 (80.0-100.0) fL MCH 31.8 (25.0-35.0) pg MCHC 35.5 (31.0-37.0) g/dL RDW 12.3 (11.5-15.5) % Plt Count 173 (150-450) k/uL MPV 10.0 Neutrophils % 65 % Lymphocytes % 23 % Monocytes % 6 % Eosinophils % 2 % Basophils % 1 % Neutrophils # 5.9 (1.3-7.7) k/uL Lymphocytes # 2.1 (1.0-4.8) k/uL Monocytes # 0.6 (0-1.0) k/uL Eosinophils # 0.2 (0-0.7) k/uL Basophils # 0.1 (0-0.2) k/uL PT 9.9 (9.0-12.0) sec INR 0.9 (<1.2) APTT 25.6 (22.0-30.0) sec Sodium 135 L (137-145) mmol/L Potassium 4.7 (3.5-5.1) mmol/L Chloride 101 (98-107) mmol/L Carbon Dioxide 22 (22-30) mmol/L Anion Gap 12 mmol/L BUN 15 (9-20) mg/dL Creatinine 0.74 (0.66-1.25) mg/dL Est GFR (CKD-EPI)AfAm >90 (>60 ml/min/1.73 sqM) Est GFR (CKD-EPI)NonAf >90 (>60 ml/min/1.73 sqM) Glucose 255 H (74-99) mg/dL Calcium 9.4 (8.4-10.2) mg/dL Disposition Clinical Impression: Preseptal cellulitis Disposition: HOME SELF-CARE Condition: Good Instructions (If sedation given, give patient instructions): Periorbital Cellulitis in Adults (ED) Is patient prescribed a controlled substance at d/c from ED?: No Referrals: [facility],Clinic [Primary Care Provider] - 1-2 days Rishabh Vidal MD [STAFF PHYSICIAN] - 1-2 days Time of Disposition: 14:08
[2022-02-26 12:47] LABS: Basophils # (A) 0.1 k/uL (0-0.2); Basophils % (A) 1 %; Eosinophils # (A) 0.2 k/uL (0-0.7); Eosinophils % (A) 2 %; HCT 49.6 % (39.0-53.0); HGB 17.6 gm/dL (13.0-17.5); Lymphocytes # (A) 2.1 k/uL (1.0-4.8); Lymphocytes % (A) 23 %; MCH 31.8 pg (25.0-35.0); MCHC 35.5 g/dL (31.0-37.0); MCV 89.4 fL (80.0-100.0); Monocytes # (A) 0.6 k/uL (0-1.0); Monocytes % (A) 6 %; Neutrophils # (A) 5.9 k/uL (1.3-7.7); Neutrophils % (A) 65 %; Platelet Count 173 k/uL (150-450); RBC 5.55 m/uL (4.30-5.90); RDW 12.3 % (11.5-15.5); WBC 9.1 k/uL (3.8-10.6)
[2022-02-26 13:01] LABS: INR 0.9 (<1.2); Partial Thromboplastin Time 25.6 sec (22.0-30.0); Prothrombin Time 9.9 sec (9.0-12.0)
[2022-02-26 13:07] LABS: African American GFR (CKD) >90 (>60 ml/min/1.73 sqM); Anion Gap 12 mmol/L; Blood Urea Nitrogen 15 mg/dL (9-20); Calcium 9.4 mg/dL (8.4-10.2); Carbon Dioxide 22 mmol/L (22-30); Chloride 101 mmol/L (98-107); Glucose 255 mg/dL (74-99); Non-African American GFR(CKD) >90 (>60 ml/min/1.73 sqM); Potassium 4.7 mmol/L (3.5-5.1); Sodium 135 mmol/L (137-145)
--- NOTE | 2022-02-26 13:45 | CT ---
EXAMINATION TYPE: CT orbits w con DATE OF EXAM: 02/26/2022 COMPARISON: None HISTORY: Left eye swelling. poss infection CT DLP: 428.8 mGycm Automated exposure control for dose reduction was used. CONTRAST: Performed with IV Contrast, patient injected with 100 mL of Isovue 300. FINDINGS: There is left-sided soft tissue edema of the left lower eyelid felt to reflect mild preseptal celluli tis. The globes are symmetric bilaterally. No intra or extraconal inflammatory process or mass lesion is seen. Extraocular musculature appears symmetric. No evidence for proptosis. Optic nerves are symm etric and unremarkable. No evidence for abscess. Intracranial structures as visualized appear to be w ithin normal limits. Paranasal sinuses appear to be well-aerated. IMPRESSION: MILD LOWER EYELID PRESEPTAL CELLULITIS ON THE LEFT.
--- NOTE | 2022-02-26 14:10 | ED ---
Medical Decision Making - Lab Data Result diagrams: 02/26/22 12:28 02/26/22 12:28 Lab Results 02/26/22 02/26/22 02/26/22 Range/Units 12:28 12:28 12:28 WBC 9.1 (3.8-10.6) k/uL RBC 5.55 (4.30-5.90) m/uL Hgb 17.6 H (13.0-17.5) gm/dL Hct 49.6 (39.0-53.0) % MCV 89.4 (80.0-100.0) fL MCH 31.8 (25.0-35.0) pg MCHC 35.5 (31.0-37.0) g/dL RDW 12.3 (11.5-15.5) % Plt Count 173 (150-450) k/uL MPV 10.0 Neutrophils % 65 % Lymphocytes % 23 % Monocytes % 6 % Eosinophils % 2 % Basophils % 1 % Neutrophils # 5.9 (1.3-7.7) k/uL Lymphocytes # 2.1 (1.0-4.8) k/uL Monocytes # 0.6 (0-1.0) k/uL Eosinophils # 0.2 (0-0.7) k/uL Basophils # 0.1 (0-0.2) k/uL PT 9.9 (9.0-12.0) sec INR 0.9 (<1.2) APTT 25.6 (22.0-30.0) sec Sodium 135 L (137-145) mmol/L Potassium 4.7 (3.5-5.1) mmol/L Chloride 101 (98-107) mmol/L Carbon Dioxide 22 (22-30) mmol/L Anion Gap 12 mmol/L BUN 15 (9-20) mg/dL Creatinine 0.74 (0.66-1.25) mg/dL Est GFR (CKD-EPI)AfAm >90 (>60 ml/min/1.73 sqM) Est GFR (CKD-EPI)NonAf >90 (>60 ml/min/1.73 sqM) Glucose 255 H (74-99) mg/dL Calcium 9.4 (8.4-10.2) mg/dL Disposition Clinical Impression: Preseptal cellulitis Disposition: HOME SELF-CARE Condition: Good Instructions (If sedation given, give patient instructions): Periorbital Cellul itis in Adults (ED) Prescriptions: Amoxicillin 875 mg PO Q12HR 7 Days #14 tablet Clindamycin [Cleocin] 300 mg PO Q8H 7 Days #42 cap Is patient prescribed a controlled substance at d/c from ED?: No Referrals: Rishabh Vidal MD [STAFF PHYSICIAN] - 1-2 days [facility],Clinic [Primary Care Provider] - 1-2 days Time of Disposition: 14:10
[2022-02-26 14:29] VITALS: BP 120/74; PULSE 80; RESP 18
== END 2022-02-26 14:29 | disposition home or self-care (01) ==
LOC: EC 10:57
DX: L03.213 Periorbital cellulitis (principal); J45.909 Unspecified asthma, uncomplicated; E11.9 Type 2 diabetes mellitus without complications; E78.5 Hyperlipidemia, unspecified; I10 Essential (primary) hypertension; M19.90 Unspecified osteoarthritis, unspecified site; Z88.8 Allergy status to other drugs, medicaments and biological substances; Z79.51 Long term (current) use of inhaled steroids; Z79.82 Long term (current) use of aspirin; Z79.84 Long term (current) use of oral hypoglycemic drugs; Z79.899 Other long term (current) drug therapy
CPT/HCPCS: 36415; 80048; 85025; 85610; 85730; 70481; 99284; Q9967

== ENCOUNTER → 2024-01-12 | Outpatient (CLI) | payer OTHER | END | disposition home or self-care (01) | LOC: LABPAT 11:47 | PROVIDERS: ATTEND Orthopaedic Surgery | DX: Z01.818 Encounter for other preprocedural examination | CPT/HCPCS: 87070 ==

== ENCOUNTER 2024-02-24 06:10 | Day surgery (SDC) | payer OTHER ==
[2024-02-24] MEDS: IV FLUID CONTINUATION 1,000 ML IV ONE (07:00)
[2024-02-24 07:04] LABS: Glucose,Whole Blood 122 mg/dL (70-110)
[2024-02-24] MEDS: LACTATED RINGERS 1,000 ML IV SCH (07:04)
[2024-02-24 07:06] VITALS: RESP 18; TEMP 98
[2024-02-24] MEDS ORDERED: PROPOFOL 10 MG/ML 20 ML VIAL IV ONE (07:20)
[2024-02-24] MEDS ORDERED: LIDOCAINE 1% INJ 10MG/ML (20 ML MDV) ONE (07:20)
--- NOTE | 2024-02-24 07:43 | P.PCN ---
Date of Procedure: 02/24/24 Procedure(s) Performed: BRIEF HISTORY: Patient is a 58-year-old pleasant white man scheduled for an elective colonoscopy as a part of evaluation by history of colon polyps. Last colonoscopy was 5 years ago and was noted to have a serrated adenoma. PROCEDURE PERFORMED: Colonoscopy. PREOPERATIVE DIAGNOSIS: History of colon polyp polyps. IV sedation per Anesthesia. PROCEDURE: After informed consent was obtained, the patient, was brought into the endoscopy unit. IV sedation was administered by Anesthesia under continuous monitoring. Digital rectal examination was normal. Initially the Olympus CF-160 flexible video colonoscope was then inserted in the rectum, gradually advanced into the cecum without any difficulty. Careful examination was performed as the scope was gradually being withdrawn. Ileocecal valve and the appendiceal orifice were visualized and appeared normal. Prep was excellent. Mucosa of the cecum, ascending colon, transverse colon, descending colon, sigmoid colon, and rectum appeared normal. Retroflexion was performed in the rectum and no lesions were seen. The patient tolerated the procedure well. IMPRESSION: Normal-appearing colon from rectum to cecum no evidence of colorectal neoplasia. RECOMMENDATIONS: Findings of this examination were discussed with the patient as well as his family. He was advised to have repeat colonoscopy in 10 years..
[2024-02-24 07:54] LABS: Glucose,Whole Blood 118 mg/dL (70-110)
[2024-02-24 08:03] VITALS: BP 129/89; PULSE 80
== END 2024-02-24 08:25 | disposition home or self-care (01) ==
LOC: ORWHC2ENDO 06:10
PROVIDERS: ATTEND Internal Medicine Gastroenterology
DX: Z12.11 Encounter for screening for malignant neoplasm of colon (principal); Z86.0101 Personal history of adenomatous and serrated colon polyps; Z79.84 Long term (current) use of oral hypoglycemic drugs; Z79.85 Long-term (current) use of injectable non-insulin antidiabetic drugs; Z79.899 Other long term (current) drug therapy
CPT/HCPCS: J2003; J2704; G0105

== ENCOUNTER 2024-03-20 10:38 | Day surgery (SDC) | payer OTHER ==
[2024-03-16 13:06] VITALS: BMI 34.1
--- NOTE | 2024-03-19 08:37 | P.HPOR ---
History of Present Illness H&P Date: 03/19/24 Chief Complaint: Right shoulder pain The patient is a 58-year-old male presents with right shoulder pain for the past several years. He is having pain with overhead activity and at night. He tried medications in addition to injections and therapy without significant relief. He notes daily pain that limits his normal function and activities. Review of Systems Per HPI Past Medical History Past Medical History: Asthma, Coronary Artery Disease (CAD), Diabetes Mellitus, Hearing Disorder / Deafness, Hyperlipidemia, Hypertension, Myocardial Infarction ([place]), Osteoarthritis (OA), Sleep Apnea/CPAP/BIPAP Additional Past Medical History / Comment(s): ADD, Daytime somnolence, urinary frequency, bilateral shoulder pain. Type II NIDDM. Use Bi-PAP. Last Myocardial Infarction Date:: 2020 History of Any Multi-Drug Resistant Organisms: None Reported Past Surgical History: Heart Catheterization With Stent, Joint Replacement, Orthopedic Surgery Additional Past Surgical History / Comment(s): several left knee surgeries,lt knee replacment, Colonoscopy. Past Anesthesia/Blood Transfusion Reactions: No Reported Reaction Additional Past Anesthesia/Blood Transfusion Reaction / Comment(s): No hx of blood transfusion to date. Date of Last Stent Placement:: 2020 Smoking Status: Former smoker - Past Family History Mother Family Medical History: Cancer Father Family Medical History: Coronary Artery Disease (CAD), Deep Vein Thrombosis (DVT) Additional Family Medical History / Comment(s): Possible DVT, PCI/stent Brother(s) Family Medical History: Sleep Apnea/CPAP/BIPAP Sister(s) Family Medical History: No Reported History Daughter(s) Family Medical History: No Reported History Son(s) Family Medical History: No Reported History Medications and Allergies Home Medications Medication Instructions Recorded Confirmed Type Albuterol Nebulized [Ventolin 2.5 mg INHALATION RT-QID PRN 12/29/16 03/16/24 His tory Nebulized] Beclomethasone Dipropionate [Qvar 1 puff INHALATION RT-BID 12/29/16 03/16/24 History 80 mcg] Fluticasone Nasal [place] [Flonase 2 spr EA NOSTRIL DAILY PRN 12/29/16 03/16/24 History Nasal [place]] Albuterol Inhaler [Ventolin Hfa 1 puff INHALATION RT-QID PRN 09/03/21 03/16/24 History Inhaler] Aspirin EC [Ecotrin Low Dose] 81 mg PO QAM 09/03/21 03/16/24 History Empagliflozin [Jardiance] 25 mg PO QAM 09/03/21 03/16/24 History Nitroglycerin Sl Tabs [Nitrostat] 0.4 mg SUBLINGUAL Q5M PRN 09/03/21 03/16/24 History glipiZIDE [Glucotrol] 10 mg PO BID 09/03/21 03/16/24 History metFORMIN HCL [Glucophage] 1,000 mg PO BID 09/03/21 03/16/24 History Carboxymethylcellulose Sodium 1 drop BOTH EYES QID PRN 02/22/24 03/16/24 History [Refresh Tears] Nicotine 14Mg/24Hr Patch [Habitrol] 1 patch TRANSDERM DAILY 02/22/24 03/16/24 History Refresh Gel 1 drop BOTH EYES HS 02/22/24 03/16/24 History Semaglutide [Ozempic] 0.5 mg SQ SA 02/22/24 03/16/24 History Vit C/E/Zn/Coppr/Lutein/Zeaxan 2 tab PO BID 02/22/24 03/16/24 History [Preservision Areds 2 Softgel] Allergy Drops(Uknown Dose) 1 drop BOTH EYES BID 03/16/24 03/16/24 History Alogliptin Benzoate [Alogliptin] 25 mg PO QAM 03/16/24 03/16/24 History Metoprolol Tartrate [Lopressor] 25 mg PO BID 03/16/24 03/16/24 History Allergies Allergy/AdvReac Type Severity Reaction Status Date / Time bupropion [From Wellbutrin] Allergy Rash/Hives Verified 03/16/24 12:38 Physical Examination - Shoulder right Tenderness with palpation: anterior, bicipital groove ROM: forward flexion: 140 degrees ROM: internal rotation: lower lumbar ROM: external rotation: 50 degrees Crepitus with motion: Yes Strength: abduction: 5/5 Strength: external rotation: 5/5 Tests: internal impingement tests: positive, external impingment tests: positive Results Patient is a well-developed well-nourished male approximately 5 foot 7, 230 pounds of endomorphic habits. HEENT exam is nonfocal, neck is supple. On examination of the right shoulder he is tender about the anterior glenohumeral j oint and subacromial space. Moderate crepitus is noted. [place]el[place], impingement test, and speed tests are positive. His distal neurovascular exam appears intact in the right upper joint. - Diagnostic results Shoulder x-ray: image reviewed (2 views of right shoulder pain the office show severe glenohumeral joint space narrowing.) Shoulder MRI: image reviewed (MRI of the right shoulder by report shows evidence of a partial-thickness rotator cuff tear along with severe glenohumeral joint osteoarthrosis and a labral tear.) Assessment and Plan Assessment: Severe right glenohumeral joint osteoarthrosis [id number] diabetes Coronary artery disease Plan: I talked to the patient at length regarding his condition along with treatment options. At this point he remains quite symptomatic despite previous conservative measures. After a thorough discussion he opts to proceed with surgery. We will plan to proceed with right total shoulder arthroplasty versus a reverse total shoulder arthroplasty. Risks and benefits were discussed at length in layman's terms. He underwent preoperative medical and cardiac clearance. We will likely keep the patient for 21-year-old post-operatively.
[~2024-03-20 10:38] MED LIST changes: +HYDROmorphone 0.5 MG/0.5 ML SYRINGE IVP PRN; -LACTATED RINGERS 1,000 ML IV SCH; +LIDOCAINE 1% (10MG/ML) FOR IV START INTRADERMA PRN; +TRANEXAMIC 1,000 MG/100ML-NACL 1,000 MG in SALINE 1 100ML.BAG IVPB PRN
[2024-03-20 11:18] LABS: Glucose,Whole Blood 104 mg/dL (70-110)
[2024-03-20] MEDS: LACTATED RINGERS 1,000 ML IV SCH (11:19)
[2024-03-20] MEDS: DEXAMETHASONE SOD PHOSPHATE 4 MG/ML 1 ML VIAL IV ONE (11:23)
[2024-03-20] MEDS: ONDANSETRON 4 MG/2 ML VIAL IVP ONE (11:24)
[2024-03-20] MEDS: MELOXICAM 7.5 MG TAB PO PRN (11:24)
[2024-03-20] MEDS: ACETAMINOPHEN TAB 500 MG TAB PO PRN (11:24)
[2024-03-20] MEDS: IV FLUID CONTINUATION 1,000 ML IV ONE (11:27)
[2024-03-20] MEDS: fentaNYL (PF) 50 MCG/ML 2 ML AMP IVP PRN (11:35)
[2024-03-20] MEDS: MIDAZOLAM 2 MG/2 ML VIAL IV PRN (11:37)
--- NOTE | 2024-03-20 11:44 | P.ANPRN ---
Procedure Note - Anesthesia - Nerve Block Performed Right Interscalene Single Time Out Performed: Yes Date of Procedure: 03/20/24 Procedure Start Time: :35 Procedure Stop Time: :42 Location of Patient: PreOp Indication: Acute Post-Operative Pain, Requested by Surgeon Sedation Type: Sedate with meaningful contact maintained Preparation: Sterile Prep Position: Supine Needle Types: Pajunk Needle Gauge: 21 Ultrasound used to visualize needle placement: Yes Ultrasound used to observe medication spread: Yes Injectate: 0.5% Ropivacaine (see comment for volume) (30 ml + 4 mg d examethasone) Blood Aspirated: No Pain Paresthesia on Injection Noted: No Resistance on Injection: Normal Image Stored and Saved: Yes Events: Uneventful and Well Tolerated
[2024-03-20] MEDS: ceFAZolin 1,000 MG in SODIUM CHLORIDE 0.9% 1,000 ML IRRIGATION ONE (13:06)
[2024-03-20] MEDS: LACTATED RINGERS 1,000 ML IV ONE (13:52)
[2024-03-20] MEDS ORDERED: SENNOSIDES-DOCUSATE SODIUM 1 EACH TAB PO PRN (14:33)
[2024-03-20] MEDS ORDERED: hydrOXYzine pamoate 25 MG CAP PO PRN (14:33)
[2024-03-20] MEDS ORDERED: HYDROmorphone 1 MG/ML 1 ML SYRINGE IVP PRN (14:33)
[2024-03-20] MEDS ORDERED: HYDROmorphone 0.5 MG/0.5 ML SYRINGE IVP PRN (14:33)
[2024-03-20] MEDS ORDERED: ONDANSETRON 4 MG/2 ML VIAL IVP PRN (14:33)
[2024-03-20] MEDS ORDERED: HYDROcodone/APAP 7.5-325MG 1 EACH TAB PO PRN (14:36)
--- NOTE | 2024-03-20 14:54 | P.OP ---
Date of Procedure: 03/20/24 Preoperative Diagnosis: Right severe glenohumeral joint osteoarthrosis Postoperative Diagnosis: Same Procedure(s) Performed: Right total shoulder arthroplasty Implants: [employer] AP size 12 press-fit humeral stem, size 12 body, 48 x 18 mm eccentric humeral head, 44 mm cemented central pegged glenoid component. Anesthesia: josie CHOI Surgeon: Teo Stiles Rest Room Attendant #1: Jonnathan Haile Estimated Blood Loss (ml): 200 Pathology: none sent Condition: stable Disposition: PACU Indications for Procedure: The patient is a 58-year-old male who presents with progressive right shoulder pain secondary to osteoarthrosis despite conservative measures. A discussion of the risks and benefits of operative intervention versus continued conservative measures was made with the patient. He opted to proceed with surgery. Operat adelita risks include infection, neurovascular injury, development of blood clots, fracture, possible component loosening/failure and possible need for subsequent procedures was discussed. Informed consent was obtained. Operative Findings: As below Description of Procedure: The patient was brought to the operating room, and after induction of general anesthesia was placed in the beachchair position. The bony prominences were appropriately padded. The right upper extremity was prepped and draped in normal fashion. A deltopectoral incision was then made lateral to the coracoid process extending approximately 12 cm. The skin was incised sharply. Subcutaneous tissues were divided bluntly. Electrocautery was used for hemostasis. The deltopectoral interval was identified and the cephalic vein gently retracted laterally with the deltoid. Subdeltoid adhesions were bluntly dissected. A self-retaining retractor was placed. The clavipectoral fascia was opened and the conjoined tendon gently retracted medially. The upper one third of the pectoralis major was released to help facilitate exposure. The biceps was identified and the sheath was opened. The rotator interval was opened. The biceps was tenotomized and allowed to retract distally. A subscapularis peel was performed and this was tagged with #2 Ethibond. The humeral head was then exposed releasing the capsule off the humeral neck. The shoulder was gently dislocated. A starting hole was made in the head in line with the humeral shaft. The shaft was reamed by hand up to 12 mm. There is good distal chatter. The cutting guide was placed planning on a cut flush with the rotator cuff insertion and 30 of retroversion. The cutting block was pinned in place. The humeral head cut was then made. This measured most appropriately at 48 x 18 mm. Residual inferior osteophytes were carefully removed flush with the [employer] cortical bone. A posterior glenoid retractor was placed. The glenoid was then exposed releasing the labrum from the 12-6 o'clock position. Residual labral tissue was removed. The glenoid sized most appropriate 44 mm. A guidewire was then inserted planning on the appropriate version. The glenoid was reamed down to a bleeding bony surface. The central pedicle was drilled. The alignment guide was placed in the peripheral peg holes drilled. The trial size 44 mm glenoid was placed and was fully seated. There was good anterior to posterior and inferior to superior fit. The trial component was removed. Pulsatile lavage was utilized. The bony surface was dried. The peripheral peg holes were then pressurized with cement utilizing a syringe. Excess cement was removed. A central pegged glenoid was then placed and was fully seated. This was gently impacted. This was held in place until the cement had sufficiently hardened. Attention was then paid again towards preparing the proximal humerus. The appropriate broach was placed in 30 of retroversion and was fully seated. An eccentric 48 x 18 mm humeral head was placed. The shoulder was gently reduced. It was taken through a range of motion. It was felt to be stable in flexion and extension with internal and external rotation. I felt there was adequate denominational of soft tissue tension. The shoulder was gently dislocated. The trial components were then removed. A #2 Ethibond was placed laterally for reattachment of the lesser tuberosity. The humeral stem was inserted in 30 of retroversion and was fully seated. There was good rotational stability. The eccentric 44 x 18 mm humeral head was gently impacted. The shoulder was then gently reduced and taken through range of motion and was felt to be stable. Pulsatile lavage was utilized. Lesser tuberosity was reattached utilizing #2 Ethibond suture. The rotator interval was closed with #2 Ethibond suture. She had minimal drainage at this point therefore a deep drain was not placed. The deltopectoral interval was closed with interrupted 2-0 Vicryl sutures. The subcu tissues were reapproximated with interrupted 2-0 Vicryl sutures. The skin was reprepped with 3-0 subcuticular Prolene suture. Steri-Strips were applied. A sterile dressing was applied in addition to a sling. The patient was then awoken from general anesthesia and transferred to recovery room in good condition. Blood loss was estimated at 200 mL. No complications were incurred. Sponge and needle counts were correct at the end the case. POOJA Griffin assisted during the major components the case to include positioning, exposure, resection, implantation, and closure.
[2024-03-20 15:07] LABS: Glucose,Whole Blood 140 mg/dL (70-110)
--- NOTE | 2024-03-20 16:11 | XR ---
EXAMINATION TYPE: XR shoulder limited RT DATE OF EXAM: 03/20/2024 3:15 PM COMPARISON: 01/31/2011 CLINICAL INDICATION: Male, 58 years old with history of s/p right total shoulder arthroplasty; [facility] TECHNIQUE: XR shoulder limited RT; examined in AP, internally rotated and scapular Y projections. FINDINGS: Shoulder arthroplasty with hardware intact. Subcutaneous lucencies compatible with recent surgery. No evidence for fracture. Hardware appears in tact The remaining portions of the visualized chest are unremarkable. IMPRESSION: No acute osseous pathology. [facility], , 03/20/2024 4:09 PM
[2024-03-20 16:37] LABS: Glucose,Whole Blood 147 mg/dL (70-110)
--- NOTE | 2024-03-20 17:10 | P.CONS ---
History of Present Illness - Reason for Consult Consult date: 03/20/24 medical co-management - Chief Complaint right shoulder pain - History of Present Illness This is a 58-year-old male with past medical history of chronic right shoulder pain for the past several years, asthma, coronary disease, diabetes, hard of hearing, hyperlipidemia, hypertension, MT as post 2 stents, osteoarthritis, sleep apnea presents the hospital for right shoulder pain. Patient was eval uated by orthopedics and underwent a right arthroplasty on 03/20/2024. Medicine was consulted for medical comanagement. Patient is on multiple medications for his diabetes which is usually well-controlled on Jardiance, glipizide, metformin and Ozempic. He states he has heart disease status post 2 stents, not currently on Plavix but does take aspirin daily. Is currently experiencing numbness of the entire right shoulder down to his fingertips, there is no associated pain at this time. Reviewed the shoulder x-ray demonstrated severe glenohumeral joint space narrowing, further MRI was performed to further characterize the right shoulder which showed evidence of a partial-thickness rotator cuff tear along with severe glenohumeral joint osteoarthrosis and a labral tear. Review of Systems 14 point review of system performed, all negative except pertinent positives noted in HPI Past Medical History Past Medical History: Asthma, Coronary Artery Disease (CAD), Diabetes Mellitus, Hearing Disorder / Deafness, Hyperlipidemia, Hypertension, Myocardial Infarction (MT), Osteoarthritis (OA), Sleep Apnea/CPAP/BIPAP Additional Past Medical History / Comment(s): ADD, Daytime somnolence, urinary frequency, bilateral shoulder pain. Type II NIDDM. Use Bi-PAP. Last Myocardial Infarction Date:: 2020 History of Any Multi-Drug Resistant Organisms: None Reported Past Surgical History: Heart Catheterization With Stent, Joint Replacement, Orthopedic Surgery Additional Past Surgical History / Comment(s): several left knee surgeries,lt knee replacment, Colonoscopy. Past Anesthesia/Blood Transfusion Reactions: No Reported Reaction Additional Past Anesthesia/Blood Transfusion Reaction / Comm: No hx of blood transfusion to date. Date of Last Stent Placement:: 2020 Past Psychological History: ADD/ADHD, Depression, PTSD Additional Psychological History / Comment(s): Pt resides with his spouse. He served in the [employer]. He has a nebulizer. He is independent. Smoking Status: Former smoker Past Alcohol Use History: Rare Additional Past Alcohol Use History / Comment(s): Pt started smoking in 1980 and quit 10/15/20 and restarted 2022. Recently started nicotine patch 03/13/24. Past Drug Use History: None Reported - Past Family History Mother Family Medical History: Cancer Father Family Medical History: Coronary Artery Disease (CAD), Deep Vein Thrombosis (DVT) Additional Family Medical History / Comment(s): Possible DVT, PCI/stent Brother(s) Family Medical History: Sleep Apnea/CPAP/BIPAP Sister(s) Family Medical History: No Reported History Daughter(s) Family Medical History: No Reported History Son(s) Family Medical History: No Reported History Medications and Allergies Home Medications Medication Instructions Recorded Confirmed Type Albuterol Nebulized [Ventolin 2.5 mg INHALATION RT-QID PRN 12/29/16 03/20/24 History Nebulized] Beclomethasone Dipropionate [Qvar 1 puff INHALATION RT-BID 12/29/16 03/16/24 History 80 mcg] Fluticasone Nasal [place] [Flonase 2 spr EA NOSTRIL DAILY PRN 12/29/16 03/16/24 History Nasal [place]] Albuterol Inhaler [Ventolin Hfa 1 puff INHALATION RT-QID PRN 09/03/21 03/16/24 History Inhaler] Aspirin EC [Ecotrin Low Dose] 81 mg PO QAM 09/03/21 03/20/24 History Empagliflozin [Jardiance] 25 mg PO QAM 09/03/21 03/16/24 History Nitroglycerin Sl Tabs [Nitrostat] 0.4 mg SUBLINGUAL Q5M PRN 09/03/21 03/20/24 History glipiZIDE [Glucotrol] 10 mg PO BID 09/03/21 03/16/24 History metFORMIN HCL [Glucophage] 1,000 mg PO BID 09/03/21 03/16/24 History Carboxymethylcellulose Sodium 1 drop BOTH EYES QID PRN 02/22/24 03/20/24 History [Refresh Tears] Nicotine 14Mg/24Hr Patch [Habitrol] 1 patch TRANSDERM DAILY 02/22/24 03/20/24 History Refresh Gel 1 drop BOTH EYES HS 02/22/24 03/16/24 History Semaglutide [Ozempic] 0.5 mg SQ SA 02/22/24 03/16/24 History Vit C/E/Zn/Coppr/Lutein/Zeaxan 2 tab PO BID 02/22/24 03/16/24 History [Preservision Areds 2 Softgel] Allergy Drops(Uknown Dose) 1 drop BOTH EYES BID 03/16/24 03/16/24 History Alogliptin Benzoate [Alogliptin] 25 mg PO QAM 03/16/24 03/20/24 History Metoprolol Tartrate [Lopressor] 25 mg PO BID 03/16/24 03/20/24 History Allergies Allergy/AdvReac Type Severity Reaction Status Date / Time bupropion [From Wellbutrin] Allergy Rash/Hives Verified 03/20/24 10:56 Physical Exam Vitals: Vital Signs Temp Pulse Resp BP Pulse Ox 03/20/24 16:00 88 16 121/66 96 03/20/24 15:47 84 16 115/60 95 03/20/24 15:32 84 16 111/57 96 03/20/24 15:17 85 16 111/59 97 03/20/24 15:02 90 16 113/60 96 03/20/24 14:47 98.3 F 87 14 134/75 99 03/20/24 12:11 80 14 118/65 96 03/20/24 11:50 81 16 123/69 96 03/20/24 11:00 97.6 F 86 16 125/72 98 Intake and Output 03/20/24 03/20/24 03/20/24 06:59 14:59 22:59 Intake Total 1601 Output Total 200 Balance 1401 Intake: IV 1601 Output: Estimated Blood Loss 200 Other: Weight 101.3 kg 101.3 kg General: [nontoxic], [no distress], [appears at stated age] Derm: [warm], [dry] Head: [atraumatic], [normocephalic], [symmetric] Eyes: [EOMI], [no lid lag], [anicteric sclera] Mouth: [no lip lesion], [mucus membranes moist] Cardiovascular: [S1S2 reg], [no murmur], [positive posterior tibial pulse bilateral], Lungs: [CTA bilateral], [no rhonchi, no rales] , [no accessory muscle use] Abdominal: [soft], [ nontender to palpation], [no guarding], [no appreciable organomegaly] Ext: Right upper extremity currently has bandages around the right shoulder down to his elbow, entire right upper extremity is in a sling Neuro: [ CN II-XI grossly intact], [no focal neuro deficits] Psych: [Alert], [oriented], [appropriate affect] Results Labs: Abnormal Lab Results - Last 24 Hours (Table) 03/20/24 03/20/24 Range/Units 15:05 16:36 POC Glucose (mg/dL) 140 H 147 H (70-110) mg/dL Assessment and Plan Assessment: Severe right glenohumeral joint osteoarthrosis status post arthroplasty [id number] type 2 diabetes mellitus Coronary artery disease Essential hypertension Hyperlipidemia History of myocardial infarction status post 2 stents Osteoarthritis multiple joints Obstructive sleep apnea Obesity Asthma Pain control PT OT evaluation DVT prophylaxis Glycemic control patient is admitted to the hospital Upon discharge patient can restart his metformin, glimepiride, Ozempic Anticipate patient will be discharged in next 24 to 48 hours pending clinical course No laboratory work was obtained upon admission Will restart home medications where appropriate Thank you for the consult, medicine will continue to follow
[2024-03-20 18:16] LABS: Basophils % (A) 0 %; Eosinophils % (A) 0 %; HGB 16.6 gm/dL (13.0-17.5); Lymphocytes # (A) 0.8 k/uL (1.0-4.8); Lymphocytes % (A) 6 %; MCH 30.1 pg (25.0-35.0); MCHC 33.2 g/dL (31.0-37.0); MCV 90.7 fL (80.0-100.0); Mean Platelet Volume 10.1; Monocytes # (A) 0.3 k/uL (0-1.0); Monocytes % (A) 2 %; Neutrophils # (A) 14.1 k/uL (1.3-7.7); Neutrophils % (A) 92 %; Platelet Count 163 k/uL (150-450); RBC 5.52 m/uL (4.30-5.90); RDW 12.8 % (11.5-15.5); WBC 15.4 k/uL (3.8-10.6)
[2024-03-20] MEDS ORDERED: DEXTROSE 50% SYRINGE 50 ML IVP PRN ×2 (19:21)
[2024-03-20 19:59] LABS: Glucose,Whole Blood 291 mg/dL (70-110)
[2024-03-20] MEDS: NICOTINE 21MG/24HR PATCH TRANSDERM SCH (20:00)
[2024-03-20] MEDS: INSULIN ASPART (NovoLOG) 100 UNIT/ML VIAL SQ SCH (20:01)
[2024-03-20] MEDS: HYDROcodone/APAP 5-325MG 1 EACH TAB PO PRN (23:57)
[2024-03-21 06:42] LABS: Glucose,Whole Blood 131 mg/dL (70-110)
[2024-03-21] MEDS: ASPIRIN 81 MG PO SCH (08:07)
[2024-03-21 08:57] VITALS: BP 125/69; PULSE 94; RESP 17; TEMP 97.4
[2024-03-21] MEDS ORDERED: ASPIRIN 325 MG TAB PO SCH (09:00)
[2024-03-21 12:04] LABS: Glucose,Whole Blood 225 mg/dL (70-110)
--- NOTE | 2024-03-21 12:48 | P.DS ---
Providers Date of admission: 03/20/2024 Expected date of discharge: 03/21/24 Attending physician: Teo Stiles Consults: 03/20/24 14:33 Consult Physician Routine Consulting Provider: Devon Kim Consult Reason/Comments: medical management s/p right total shoulder arthroplasty Do you want consulting provider notified?: Yes Primary care physician: [facility] Hospital Course: Date of admission: 03/20/2024 Date of discharge: 03/21/2024 Admission diagnosis: Right severe glenohumeral joint osteoarthrosis Discharge diagnosis: Same Attending physician: Dr. Stiles Surgical procedures: Right total shoulder arthroplasty Brief history: Patient is a 58-year-old male with a history of right severe glenohumeral joint osteoarthrosis. At this point patient has failed conservative treatment measures and has opted to proceed with a elective right total shoulder arthroplasty. Hospital course: Details of patient's surgery can be found in operative report. Patient tolerated the procedure well and was subsequently transported to orthopedic floor. Patient's orthopeidc and medical care was provided daily. Patient had daily laboratory tests performed for evaluation of overall blood counts. Patient had daily physical therapy to include strengthening range of motion as well as education with walker ambulation. Patient was treated with aspirin for their postoperative DVT prophylaxis during their inpatient stay. Patient was noted to have a relatively uneventful postoperative course. Patient reported satisfactory pain control with oral pain medications by postoperative day 1. Patient showed satisfactory progress with physical therapy. Patient moved steadily through the program and had no difficulty meeting the goals by postoperative day 1. Given patient's otherwise satisfactory course and having met physical therapy goals, plan is to discharge patient home on postoperative day 1. Discharge condition/disposition: Patient will be discharged home in stable condition. Discharge medications: Instructions are given on resumption of patient's normal daily medications per primary care recommendation, in addition patient will be prescribed [place]; senna; aspirin 81 mg daily. Orthopedic Discharge Instructions: 1. Wound care and infection precautions, keep incision dry and covered while showering, no lotions, creams, moisturizers. No soaking, pools, hot tubs. Do not scrub over incision. 2. Non-weight bearing right upper extremity until follow-up. 3. Ice when necessary. Do not exceed 20 minutes per hour with ice pack. 4. Utilize sling until seen at first follow up appointment. 5. Pain meds and anticoagulants per prescription. 6. Pain medication has potential to cause constipation. Increase oral fluid and fiber intake. Contact primary care provider if you have not had a bowel movement within 48 hours after discharge. 7. No anti-inflammatory medication until discussed at first post operative visit, this including Motrin, Aleve, Mobic, Diclofenac. 8. Follow up in office at 2 weeks postop with Fabian Kennedy PA-C / Jonnathan Haile PA-C 9. Follow up with your primary care doctor 7-10 days after discharge. 10. Contact [facility] with any questions, . Keep incision clean, dry, intact. While showering, cover incision with Saran wrap. Keep steri-strips on until follow-up appointment in office in 2 weeks. Assessment: Right severe glenohumeral joint osteoarthrosis Procedures: Right total shoulder arthroplasty Patient Condition at Discharge: Good Plan - Discharge Summary Discharge Rx Participant: No New Discharge Prescriptions: New HYDROcodone/APAP 5-325MG [Pacifica 5-325] 1 tab PO Q6HR PRN #28 tab PRN Reason: Pain Sennosides/Docusate Sodium [Senna Plus 8.6-50 mg Softgel] 1 each PO DAILY #20 capsule Continue Aspirin EC [Ecotrin Low Dose] 81 mg PO QAM No Action Albuterol Nebulized [Ventolin Nebulized] 2.5 mg INHALATION RT-QID PRN PRN Reason: Dyspnea Fluticasone Nasal [place] [Flonase Nasal [place]] 2 spr EA NOSTRIL DAILY PRN PRN Reason: allergies Beclomethasone Dipropionate [Qvar 80 mcg] 1 puff INHALATION RT-BID Albuterol Inhaler [Ventolin Hfa Inhaler] 1 puff INHALATION RT-QID PRN PRN Reason: Shortness Of Breath Empagliflozin [Jardiance] 25 mg PO QAM metFORMIN HCL [Glucophage] 1,000 mg PO BID Carboxymethylcellulose Sodium [Refresh Tears] 1 drop BOTH EYES QID PRN PRN Reason: dry eye Semaglutide [Ozempic] 0.5 mg SQ SA Refresh Gel 1 drop BOTH EYES HS Alogliptin Benzoate [Alogliptin] 25 mg PO QAM glipiZIDE [Glucotrol] 10 mg PO BID Nitroglycerin Sl Tabs [Nitrostat] 0.4 mg SUBLINGUAL Q5M PRN PRN Reason: Chest Pain Vit C/E/Zn/Coppr/Lutein/Zeaxan [Preservision Areds 2 Softgel] 2 tab PO BID Nicotine 14Mg/24Hr Patch [Habitrol] 1 patch TRANSDERM DAILY Metoprolol Tartrate [Lopressor] 25 mg PO BID Allergy Drops(Uknown Dose) 1 drop BOTH EYES BID Discharge Medication List Albuterol Nebulized [Ventolin Nebulized] 2.5 mg INHALATION RT-QID PRN 12/29/16 [History] Beclomethasone Dipropionate [Qvar 80 mcg] 1 puff INHALATION RT-BID 12/29/16 [History] Fluticasone Nasal Palmer [Flonase Nasal Palmer] 2 spr EA NOSTRIL DAILY PRN 12/29/16 [History] Albuterol Inhaler [Ventolin Hfa Inhaler] 1 puff INHALATION RT-QID PRN 09/03/21 [History] Aspirin EC [Ecotrin Low Dose] 81 mg PO QAM 09/03/21 [History] Empagliflozin [Jardiance] 25 mg PO QAM 09/03/21 [History] Nitroglycerin Sl Tabs [Nitrostat] 0.4 mg SUBLINGUAL Q5M PRN 09/03/21 [History] glipiZIDE [Glucotrol] 10 mg PO BID 09/03/21 [History] metFORMIN HCL [Glucophage] 1,000 mg PO BID 09/03/21 [History] Carboxymethylcellulose Sodium [Refresh Tears] 1 drop BOTH EYES QID PRN 02/22/24 [History] Nicotine 14Mg/24Hr Patch [Habitrol] 1 patch TRANSDERM DAILY 02/22/24 [History] Refresh Gel 1 drop BOTH EYES HS 02/22/24 [History] Semaglutide [Ozempic] 0.5 mg SQ SA 02/22/24 [History] Vit C/E/Zn/Coppr/Lutein/Zeaxan [Preservision Areds 2 Softgel] 2 tab PO BID 02/22/24 [History] Allergy Drops(Uknown Dose) 1 drop BOTH EYES BID 03/16/24 [History] Alogliptin Benzoate [Alogliptin] 25 mg PO QAM 03/16/24 [History] Metoprolol Tartrate [Lopressor] 25 mg PO BID 03/16/24 [History] HYDROcodone/APAP 5-325MG [Pacifica 5-325] 1 tab PO Q6HR PRN #28 tab 03/21/24 [Rx] Sennosides/Docusate Sodium [Senna Plus 8.6-50 mg Softgel] 1 each PO DAILY #20 capsule 03/21/24 [Rx] Follow up Appointment(s)/Referral(s): Jonnathan Haile, PAC [PHYSICIAN INCIDENT COORDINATOR] - 2 Weeks Patient Instructions/Handouts: Shoulder Arthroplasty (GEN) Activity/Diet/Wound Care/Special Instructions: Orthopedic Discharge Instructions: 1. Wound care and infection precautions, keep incision dry and covered while showering, no lotions, creams, moisturizers. No soaking, pools, hot tubs. Do not scrub over incision. 2. Non-weight bearing right upper extremity until follow-up. 3. Ice when necessary. Do not exceed 20 minutes per hour with ice pack. 4. Utilize sling until seen at first follow up appointment. 5. Pain meds and anticoagulants per prescription. 6. Pain medication has potential to cause constipation. Increase oral fluid and fiber intake. Contact primary care provider if you have not had a bowel movement within 48 hours after discharge. 7. No anti-inflammatory medication until discussed at first post operative visit, this including Motrin, Aleve, Mobic, Diclofenac. 8. Follow up in office at 2 weeks postop with Fabian Kennedy PA-C / Jonnathan Haile PA-C 9. Follow up with your primary care doctor 7-10 days after discharge. 10. Contact [facility] with any questions, . Keep incision clean, dry, intact. While showering, cover incision with Saran wrap. Keep steri-strips on until follow-up appointment in office in 2 weeks. Discharge Disposition: HOME SELF-CARE
--- NOTE | 2024-03-21 13:20 | P.PN ---
Subjective Progress Note Date: 03/21/24 Principal diagnosis: Right severe glenohumeral joint osteoarthrosis Patient was seen at bedside this morning lying semirecumbent position with dressing present over right shoulder and sling present throughout upper extremity. Patient says he has been up walking around the room since surgery without issue. Patient says he has been urinating without issue. Patient denies any other issues at this time. Objective - Vital Signs Vital signs: Vital Signs Temp 97.4 F L 03/21/24 07:48 Pulse 94 03/21/24 08:00 Resp 17 03/21/24 08:00 BP 125/69 03/21/24 07:48 Pulse Ox 96 03/21/24 07:48 FiO2 Intake & Output 03/20/24 03/21/24 03/21/24 18:59 06:59 18:59 Intake Total 1601 2160 Output Total 200 Balance 1401 2160 Weight 101.3 kg Intake: IV 1601 Oral 2160 Output: Estimated Blood Loss 200 Other: # Voids 1 6 - Exam Right shoulder: Incision is clean, dry, and intact. The dressing is in good condition. There is minimal soft tissue swelling and ecchymosis surrounding the medial and lat eral aspects of the incision. Calf is soft, no tenderness with palpation. Plantar flexion, dorsiflexion, EHL, FHL are intact. Sensory exam to light touch throughout the extremity is intact, dorsal pedis pulses 2+. - Labs CBC & Chem 7: 03/20/24 17:53 Labs: Abnormal Lab Results - Last 24 Hours (Table) 03/20/24 03/20/24 03/20/24 Range/Units 15:05 16:36 17:53 WBC 15.4 H (3.8-10.6) k/uL Neutrophils # 14.1 H (1.3-7.7) k/uL Lymphocytes # 0.8 L (1.0-4.8) k/uL POC Glucose (mg/dL) 140 H 147 H (70-110) mg/dL 03/20/24 03/21/24 03/21/24 Range/Units 19:58 06:40 12:03 WBC (3.8-10.6) k/uL Neutrophils # (1.3-7.7) k/uL Lymphocytes # (1.0-4.8) k/uL POC Glucose (mg/dL) 291 H 131 H 225 H (70-110) mg/dL Assessment and Plan Assessment: 1. Right severe glenohumeral joint osteoarthrosis - Postoperative day 1 status post right total shoulder arthroplasty Plan: 1. Right severe glenohumeral joint osteoarthrosis - right total shoulder arthroplasty performed yesterday, 03/20/2024. Patient stable at bedside this morning with sling and dressing present throughout upper extremity. Pain well-controlled. Discharge home today. 2. Appreciate medical management 3. Pain management - [place] 4. GI prophylaxis - senna 5. DVT prophylaxis - aspirin 6. PT/OT - nonweightbearing right upper extremity. Maintain right upper extremity in sling 7. Encourage incentive spirometer use 8. Discharge planning - discharge home today Time with Patient: Less than 30
--- NOTE | 2024-03-21 14:35 | P.PN ---
Subjective History of Present Illness - Reason for Consult Consult date: 03/20/24 medical co-management - Chief Complaint right shoulder pain - History of Present Illness This is a 58-year-old male with past medical history of chronic right shoulder pain for the past several years, asthma, coronary disease, diabetes, hard of hearing, hyperlipidemia, hypertension, [place] as post 2 stents, osteoarthritis, sleep apnea presents the hospital for right shoulder pain. Patient was evaluated by orthopedics and underwent a right arthroplasty on 03/20/2024. Medicine was consulted for medical comanagement. Patient is on multiple medications for his diabetes which is usually well-controlled on Jardiance, glipizide, metformin and Ozempic. He states he has heart disease status post 2 stents, not currently on Plavix but does take aspirin daily. Is currently experiencing numbness of the entire right shoulder down to his fingertips, there is no associated pain at this time. Reviewed the shoulder x-ray demonstrated severe glenohumeral joint space narrowing, further MRI was performed to further characterize the right shoulder which showed evidence of a partial-thickness rotator cuff tear along with severe glenohumeral joint osteoarthrosis and a labral tear. Review of Systems 14 point review of system performed, all negative except pertinent positives noted in HPI Past Medical History Past Medical History: Asthma, Coronary Artery Disease (CAD), Diabetes Mellitus, Hearing Disorder / Deafness, Hyperlipidemia, Hypertension, Myocardial Infarction ([place]), Osteoarthritis (OA), Sleep Apnea/CPAP/BIPAP Additional Past Medical History / Comment(s): ADD, Daytime somnolence, urinary frequency, bilateral shoulder pain. Type II NIDDM. Use Bi-PAP. Last Myocardial Infarction Date:: 2020 History of Any Multi-Drug Resistant Organisms: None Reported Past Surgical History: Heart Catheterization With Stent, Joint Replacement, Orthopedic Surgery Additional Past Surgical History / Comment(s): several left knee surgeries,lt knee replacment, Colonoscopy. Past Anesthesia/Blood Transfusion Reactions: No Reported Reaction Additional Past Anesthesia/Blood Transfusion Reaction / Comm: No hx of blood transfusion to date. Date of Last Stent Placement:: 2020 Past Psychological History: ADD/ADHD, Depression, PTSD Additional Psychological History / Comment(s): Pt resides with his spouse. He served in the [employer]. He has a nebulizer. He is independent. Smoking Status: Former smoker Past Alcohol Use History: Rare Additional Past Alcohol Use History / Comment(s): Pt started smoking in 1980 and quit 10/15/20 and restarted 2022. Recently started nicotine patch 03/13/24. Past Drug Use History: None Reported Medications and Allergies Home Medications Medication Instructions Recorded Confirmed Type Albuterol Nebulized [Ventolin 2.5 mg INHALATION RT-QID PRN 12/29/16 03/20/24 History Nebulized] Beclomethasone Dipropionate [Qvar 1 puff INHALATION RT-BID 12/29/16 03/16/24 Hi story 80 mcg] Fluticasone Nasal [place] [Flonase 2 spr EA NOSTRIL DAILY PRN 12/29/16 03/16/24 H istory Nasal Kamrar] Albuterol Inhaler [Ventolin Hfa 1 puff INHALATION RT-QID PRN 09/03/21 03/16/24 History Inhaler] Aspirin EC [Ecotrin Low Dose] 81 mg PO QAM 09/03/21 03/20/24 History Empagliflozin [Jardiance] 25 mg PO QAM 09/03/21 03/16/24 History Nitroglycerin Sl Tabs [Nitrostat] 0.4 mg SUBLINGUAL Q5M PRN 09/03/21 03/20/24 History glipiZIDE [Glucotrol] 10 mg PO BID 09/03/21 03/16/24 History metFORMIN HCL [Glucophage] 1,000 mg PO BID 09/03/21 03/16/24 History Carboxymethylcellulose Sodium 1 drop BOTH EYES QID PRN 02/22/24 03/20/24 History [Refresh Tears] Nicotine 14Mg/24Hr Patch [Habitrol] 1 patch TRANSDERM DAILY 02/22/24 03/20/24 History Refresh Gel 1 drop BOTH EYES HS 02/22/24 03/16/24 History Semaglutide [Ozempic] 0.5 mg SQ SA 02/22/24 03/16/24 History Vit C/E/Zn/Coppr/Lutein/Zeaxan 2 tab PO BID 02/22/24 03/16/24 History [Preservision Areds 2 Softgel] Allergy Drops(Uknown Dose) 1 drop BOTH EYES BID 03/16/24 03/16/24 History Alogliptin Benzoate [Alogliptin] 25 mg PO QAM 03/16/24 03/20/24 History Metoprolol Tartrate [Lopressor] 25 mg PO BID 03/16/24 03/20/24 History Allergies Allergy/AdvReac Type Severity Reaction Status Date / Time bupropion [From Wellbutrin] Allergy Rash/Hives Verified 03/20/24 10:56 Physical Exam Vitals: Vital Signs Temp Pulse Resp BP Pulse Ox 03/20/24 16:00 88 16 121/66 96 03/20/24 15:47 84 16 115/60 95 03/20/24 15:32 84 16 111/57 96 03/20/24 15:17 85 16 111/59 97 03/20/24 15:02 90 16 113/60 96 03/20/24 14:47 98.3 F 87 14 134/75 99 03/20/24 12:11 80 14 118/65 96 03/20/24 11:50 81 16 123/69 96 03/20/24 11:00 97.6 F 86 16 125/72 98 Intake and Output 03/20/24 03/20/24 03/20/24 06:59 14:59 22:59 Intake Total 1601 Output Total 200 Balance 1401 Intake: IV 1601 Output: Estimated Blood Loss 200 Other: Weight 101.3 kg 101.3 kg General: [nontoxic], [no distress], [appears at stated age] Derm: [warm], [dry] Head: [atraumatic], [normocephalic], [symmetric] Eyes: [EOMI], [no lid lag], [anicteric sclera] Mouth: [no lip lesion], [mucus membranes moist] Cardiovascular: [S1S2 reg], [no murmur], [positive posterior tibial pulse bilateral], Lungs: [CTA bilateral], [no rhonchi, no rales] , [no accessory muscle use] Abdominal: [soft], [ nontender to palpation], [no guarding], [no appreciable organomegaly] Ext: Right upper extremity currently has bandages around the right shoulder down to his elbow, entire right upper extremity is in a sling Neuro: [ CN II-XI grossly intact], [no focal neuro deficits] Psych: [Alert], [oriented], [appropriate affect] Results Labs: Abnormal Lab Results - Last 24 Hours (Table) 03/20/24 03/20/24 Range/Units 15:05 16:36 POC Glucose (mg/dL) 140 H 147 H (70-110) mg/dL Assessment and Plan Assessment: Severe right glenohumeral joint osteoarthrosis status post arthroplasty [id number] type 2 diabetes mellitus Coronary artery disease Essential hypertension Hyperlipidemia History of myocardial infarction status post 2 stents Osteoarthritis multiple joints Obstructive sleep apnea Obesity Asthma Pain control PT OT evaluation DVT prophylaxis Glycemic control patient is admitted to the hospital Upon discharge patient can restart his metformin, glimepiride, Ozempic Anticipate patient will be discharged in next 24 to 48 hours pending clinical course No laboratory work was obtained upon admission Will restart home medications where appropriate Thank you for the consult, medicine will continue to follow 03/21 Patient seen and examined at bedside He has now had better sensation in his right upper extremity, numbness and tingling has improved Pain is well-controlled on current regimen Patient has ambulated around the hallways without any difficulties Vital signs reviewed, stable at this time Stable from my standpoint for discharge when cleared by primary team Objective - Vital Signs Vital signs: Vital Signs Temp 97.4 F L 03/21/24 07:48 Pulse 94 03/21/24 08:00 Resp 17 03/21/24 08:00 BP 125/69 03/21/24 07:48 Pulse Ox 96 03/21/24 07:48 FiO2 Intake & Output 03/20/24 03/21/24 03/21/24 18:59 06:59 18:59 Intake Total 1601 2160 Output Total 200 Balance 1401 2160 Weight 101.3 kg Intake: IV 1601 Oral 2160 Output: Estimated Blood Loss 200 Other: # Voids 1 6 - Labs CBC & Chem 7: 03/20/24 17:53 Labs: Abnormal Lab Results - Last 24 Hours (Table) 03/20/24 03/20/24 03/20/24 Range/Units 15:05 16:36 17:53 WBC 15.4 H (3.8-10.6) k/uL Neutrophils # 14.1 H (1.3-7.7) k/uL Lymphocytes # 0.8 L (1.0-4.8) k/uL POC Glucose (mg/dL) 140 H 147 H (70-110) mg/dL 11/26/24 11/27/24 11/27/24 Range/Units 19:58 06:40 12:03 WBC (3.8-10.6) k/uL Neutrophils # (1.3-7.7) k/uL Lymphocytes # (1.0-4.8) k/uL POC Glucose (mg/dL) 291 H 131 H 225 H (70-110) mg/dL
== END 2024-03-21 14:25 | disposition home or self-care (01) ==
LOC: OR 10:38 → 4SSUR 14:42 → OR 03-21 14:25
PROVIDERS: ATTEND Orthopaedic Surgery
DX: M19.011 Primary osteoarthritis, right shoulder (principal); E11.9 Type 2 diabetes mellitus without complications; E66.9 Obesity, unspecified; E78.5 Hyperlipidemia, unspecified; G47.33 Obstructive sleep apnea (adult) (pediatric); G89.18 Other acute postprocedural pain; G89.29 Other chronic pain; I10 Essential (primary) hypertension; I25.10 Atherosclerotic heart disease of native coronary artery without angina pectoris; I25.2 Old myocardial infarction; J45.909 Unspecified asthma, uncomplicated; M75.111 Incomplete rotator cuff tear or rupture of right shoulder, not specified as traumatic; Z79.51 Long term (current) use of inhaled steroids; Z79.82 Long term (current) use of aspirin; Z79.84 Long term (current) use of oral hypoglycemic drugs; Z79.899 Other long term (current) drug therapy; Z87.891 Personal history of nicotine dependence; Z88.8 Allergy status to other drugs, medicaments and biological substances; Z95.5 Presence of coronary angioplasty implant and graft; Z98.890 Other specified postprocedural states; Z99.89 Dependence on other enabling machines and devices
CPT/HCPCS: 85025; 73020; 23472; 64415; S4990; J2250; J1100; J0690 ×2; J2405; J3010